=== PATIENT | female | born 1935 | race Caucasian/White ===

== ENCOUNTER 2018-05-16 13:44 | Inpatient (IN) ==
--- NOTE | 2018-05-16 14:32 | EKG Report ---
Test Performed on : 05/16/2018 1:48:18 PM Test Reason : CP Blood Pressure : / mmHG Vent. Rate : 101 BPM Atrial Rate : 278 BPM P-R Int : 000 ms QRS Dur : 086 ms QT Int : 380 ms P-R-T Axes : 000 -34 024 degrees QTc Int : 492 ms Atrial flutter. with variable AV block. Left axis deviation Nonspecific ST abnormality Abnormal ECG When compared with ECG of 12-MAY-2017 06:37, Atrial flutter. has replaced Sinus rhythm. Unconfirmed Result
[2018-05-16 15:34] LABS: BASO# 0.04 X1000 (0.0-0.2); BASO% 0.4 % (0.0-0.8); EOS# 0.03 X1000 (0.0-0.7); EOS% 0.3 % (0.0-10.0); HEMATOCRIT 43.2 % (37.0-47.0); HEMOGLOBIN 14.2 g/dL (12.0-16.0); IMM GRAN# 0.02 X1000 (0.0-0.04); IMM GRAN% 0.2 % (0.0-0.5); LYMPH# 1.95 X1000 (1.2-3.4); LYMPH% 21.4 % (20.5-51.1); MCH 30.6 PG (27-31); MCHC 32.9 g/dL (33-37); MCV 93.1 FL (81-99); MONO# 0.82 X1000 (0.11-0.59); MPV 10.7 FL (7.4-10.4); NEUT# 6.25 X1000 (1.4-6.5); NEUT% 68.7 % (42.2-75.2); PLT 268 X1000 (130-400); RBC 4.64 XMIL (4.2-5.4); RDW 13.1 % (11.5-14.5); WBC 9.11 X1000 (4.8-10.8)
[2018-05-16 15:37] LABS: INR 1.02; PROTIME 14.2 Seconds (11.0-16.0)
[2018-05-16 15:38] LABS: PTT 32.5 Seconds (22.3-41.8)
--- NOTE | 2018-05-16 15:46 | Diag Imaging Result Doc PS360 ---
CHEST-2 VIEWS - 05/16/2018 INDICATION: cp COMPARISON: 02/18/2018 FINDINGS: Stable sternotomy wires. Heart size and pulmonary vascularity is normal. No infiltrates or edema. IMPRESSION: No acute disease. Electronically signed by Andrew Bustos 05/16/2018 3:44 PM
[2018-05-16 15:51] LABS: ALB/GLOB RATIO 1.7; ALBUMIN 3.9 g/dL (3.5-5.0); CALCIUM 9.2 mg/dL (8.8-10.2); CREATININE 0.9 mg/dL (0.5-0.9); POTASSIUM 3.9 mmol/L (3.5-5.1); TOTAL BILIRUBIN 0.86 mg/dL (0.20-1.00); TOTAL PROTEIN 6.2 g/dL (6.3-8.3)
--- NOTE | 2018-05-16 16:25 | EKG Report ---
Test Performed on : 05/16/2018 4:14:28 PM Test Reason : CP Blood Pressure : / mmHG Vent. Rate : 100 BPM Atrial Rate : 271 BPM P-R Int : 000 ms QRS Dur : 088 ms QT Int : 350 ms P-R-T Axes : 000 -28 016 degrees QTc Int : 451 ms Atrial flutter. with variable AV block. Abnormal ECG When compared with ECG of 16-MAY-2018 13:48, (Unconfirmed) No significant change was found Unconfirmed Result
--- NOTE | 2018-05-16 16:57 | PROVIDER DOCUMENTATION ---
This chart was entered by Luann Barfield Scribe, acting as scribe for Val Fishman CRNP. HPI-Cardiac General - General Chief Complaint: Palpitations Stated Complaint: CP Time Seen by Provider: 05/16/18 14:25 Source: patient Allergies/Adverse Reactions: Patient Allergies Allergy/AdvReac Type Severity Reaction Status Date / Time morphine AdvReac HIVES Verified 05/16/18 14:59 Penicillins AdvReac NAUSEA Verified 05/16/18 14:59 Sulfa (Sulfonamide AdvReac NAUSEA Verified 05/16/18 14:59 Antibiotics) Home Medications: Home Medication List Medication Instructions Recorded Confirmed Last Taken Type Brimonidine Tartrate [Alphagan P] 1 drop OP DAILY 05/11/17 05/16/18 05/16/18 History Carbidopa/Levodopa [Carbidopa-Levo 1 tab PO HS PRN 05/11/17 05/16/18 Unknown History 10-100 Tab] Citalopram [Celexa] 20 mg PO DAILY 05/11/17 05/16/18 05/16/18 History Furosemide [Lasix] 20 mg PO DAILY 05/11/17 05/16/18 05/16/18 History Gabapentin 300 mg PO TID 05/11/17 05/16/18 05/16/18 History Levothyroxine [Synthroid] 100 mcg PO DAILY 05/11/17 05/16/18 05/16/18 History Aspirin 81 mg PO DAILY #90 chewtab 05/15/17 05/16/18 05/16/18 Rx Albuterol Sulfate Inhaler 1 puff INH PRN PRN 05/16/18 05/16/18 05/16/18 History [Ventolin Hfa] Albuterol Sulfate [Proair Hfa] 1 puff INH PRN PRN 05/16/18 05/16/18 Unknown History Amlodipine [Norvasc] 5 mg PO DAILY 05/16/18 05/16/18 05/16/18 History Clopidogrel Bisulfate [Clopidogrel] 75 mg PO DAILY 05/16/18 05/16/18 05/16/18 History - History of Present Illness-Cardiac Nature of Presenting Problem: 82 yof presents to the ed with c/o palpitations for 4 days intermittent. pt c/o near syncope and sob but declines chest pain. pt has no hx of afib Location: reports: other (left anterior) Quality of Pain: reports: other (palpitations) Severity in ED: moderate Onset/Duration: 4 days ago Timing: still present, intermittent Context/Activities at Onset: reports: light activity Modifying Factors: improves with: nothing Palpitation Quality: irregular History of arrythmia: reports: none Recent use of:: reports: no stimulants Nitro Today/Relief: reports: no nitro taken today Aspirin Treatment Today: reports: no aspirin today Prior Chest Pain/Cardiac Workup: reports: no prior chest pain Associated Symptoms: reports: shortness of breath. denies: abdominal pain, dizziness, fever/chills, nausea, syncope, vomiting Review of Systems - Adult - REVIEW OF SYSTEMS - ADULT Constitutional: denies: chills, fever Eyes: denies: blurred vision, double vision Ears, Nose, Mouth & Throat: reports: no symptoms reported Cardiovascular: reports: see HPI, palpitations. denies: chest pain, syncope ( near syncope) Respiratory: reports: shortness of breath. denies: cough, wheezing Gastrointestinal: denies: abdominal pain, diarrhea, nausea, vomiting Genitourinary: reports: no symptoms reported Musculoskeletal: reports: no symptoms reported Integumentary: reports: no symptoms reported Neurological: denies: dizziness/vertigo, headache/migraines Psychiatric: reports: no symptoms reported Endocrine: reports: no symptoms reported Hematologic/Lymphatic: reports: no symptoms reported Allergic/Immunologic: reports: no symptoms reported All Other Systems: Reviewed and Negative Past History - Adult - PAST MEDICAL HISTORY-ADULT Review of Records: reports: Old Records Reviewed, Nursing Assessment Review, Medications Reviewed, Social history reviewed & non-contributory. Major Childhood Illnesses: reports: denies history Cardiovascular: reports: CAD, HTN Respiratory: reports: COPD Gastrointestinal: reports: GERD Obstetrical/Gynecological: reports: denies history Genitourinary: reports: denies history Musculoskeletal: reports: denies history Neurological: reports: denies history Psychiatric: reports: denies history Endocrine/Immune: reports: denies history Other Conditions: reports: denies history - PRIOR SURGERIES/PROCEDURES Surgical/Procedure History: reports: CABG, cardiac stent - IMMUNIZATION STATUS Childhood Immunizations: See Nurse Assessment Flu Vaccine: See Nurse Assessment - FAMILY HISTORY Family History: reviewed, not pertinent - SOCIAL HISTORY Smoking: denies Substance Use: denies Alcohol Use Frequency: never Living Situation: family Physical Exam-General - PHYSICAL EXAM-ADULT Initial Vital Signs Reviewed: Yes - CONSTITUTIONAL General Appearance: appears well, alert, no apparent distress - EYES Eyes: PERRL/EOMI, pink conjunctivae - HEAD, EARS, NOSE, MOUTH & THROAT HENMT: moist mucous membranes, normal ENT inspection - NECK Neck: non-tender, full range of motion, supple, normal inspection - RESPIRATORY Respiratory: chest non-tender, lungs clear, normal breath sounds - CARDIOVASCULAR Cardiovascular: normal peripheral pulses, tachycardia (139), other (irregular) - GASTROINTESTINAL (ABDOMEN) Abdominal Exam: normal bowel sounds, non tender, soft - LYMPHATIC Lymphatic: no adenopathy - MUSCULOSKELETAL Back Exam: normal inspection, no CVA tenderness, no vertebral tenderness Extremity: normal range of motion, non-tender, normal gait, normal inspection - SKIN Integumentary: normal color, normal turgor, warm/dry - NEUROLOGIC Neurologic: grossly normal, no motor/sensory deficits - PSYCHIATRIC Psych/Mental Status: normal mood/affect, normal thought content, normal thought process, oriented x 3 - HEART Score HEART Score: History: Moderately Suspicious HEART Score: ECG: Normal HEART Score: Age: > or = 65 Years HEART Score: Risk Factors for Atherosclerotic Disease: 1 or 2 Risk Factors HEART Score: Troponin: < or = Normal Limit Total HEART Score:: 4 Progress - PLAN OF CARE/RESULTS Progress/Plan/Lab Results: Vital Signs - 8 hr 05/16/18 13:53 05/16/18 15:10 05/16/18 15:12 Temperature 97.7 F Pulse Rate 139 H 76 75 Respiratory Rate 18 Blood Pressure 146/98 141/85 O2 Sat by Pulse Oximetry 99 93 L 95 05/16/18 15:17 05/16/18 15:20 05/16/18 15:30 Temperature Pulse Rate 87 75 79 Respiratory Rate 13 15 Blood Pressure 147/85 O2 Sat by Pulse Oximetry 95 95 94 L 05/16/18 15:32 05/16/18 15:40 05/16/18 15:48 Temperature Pulse Rate 82 78 87 Respiratory Rate Blood Pressure 140/89 129/71 O2 Sat by Pulse Oximetry 94 L 94 L 94 L 05/16/18 15:50 05/16/18 16:00 05/16/18 16:02 Temperature Pulse Rate 92 H 91 H 97 H Respiratory Rate Blood Pressure 144/77 O2 Sat by Pulse Oximetry 92 L 94 L 91 L 05/16/18 16:10 Temperature Pulse Rate 96 H Respiratory Rate Blood Pressure O2 Sat by Pulse Oximetry 92 L Laboratory Results - last 24 hr 05/16/18 05/16/18 05/16/18 15:15 15:15 15:15 WBC 9.11 RBC 4.64 Hgb 14.2 Hct 43.2 MCV 93.1 MCH 30.6 MCHC 32.9 L RDW Std Deviation 13.1 Plt Count 268 MPV 10.7 H Immature Gran % (Auto) 0.2 Neut % (Auto) 68.7 Lymph % (Auto) 21.4 [place] % (Auto) 9.0 Eos % (Auto) 0.3 Baso % (Auto) 0.4 Immature Gran # (Auto) 0.02 Neut # (Auto) 6.25 Lymph # (Auto) 1.95 [place] # (Auto) 0.82 H Eos # (Auto) 0.03 Baso # (Auto) 0.04 PT 14.2 INR 1.02 PTT (Actin FS) 32.5 Sodium 142 Potassium 3.9 Chloride 103 Carbon Dioxide 27 Anion Gap 12 BUN 12 Creatinine 0.9 Estimated GFR/1.73 m2 60 BUN/Creatinine Ratio 13 Glucose 152 H Calculated Osmolality 286 Calcium 9.2 Total Bilirubin 0.86 AST 11 ALT 8 L Alkaline Phosphatase 81 Creatine Kinase 46 Troponin T [id number] Pept Total Protein 6.2 L Albumin 3.9 Globulin 2.3 Albumin/Globulin Ratio 1.7 05/16/18 05/16/18 15:15 15:15 WBC RBC Hgb Hct MCV MCH MCHC RDW Std Deviation Plt Count MPV Immature Gran % (Auto) Neut % (Auto) Lymph % (Auto) [place] % (Auto) Eos % (Auto) Baso % (Auto) Immature Gran # (Auto) Neut # (Auto) Lymph # (Auto) [place] # (Auto) Eos # (Auto) Baso # (Auto) PT INR PTT (Actin FS) Sodium Potassium Chloride Carbon Dioxide Anion Gap BUN Creatinine Estimated GFR/1.73 m2 BUN/Creatinine Ratio Glucose Calculated Osmolality Calcium Total Bilirubin AST ALT Alkaline Phosphatase Creatine Kinase Troponin T < 0.010 [id number]-Uvdyqeyllbf Pept 3562 H Total Protein Albumin Globulin Albumin/Globulin Ratio Orders Category Date Time Status Nursing [[facility]. NRSG Communication Order] DIRECTED Care 05/16/18 16:09 Active Repeat Vital Signs .Heart Rate Care 05/16/18 15:18 Active CHEST-2 VIEWS [RAD] Stat Exams 05/16/18 14:26 Completed BNP [PRO B-NATRIURETIC PEPTIDE] Stat Lab 05/16/18 15:15 Completed CBC WITH DIFF [HEME] Stat Lab 05/16/18 15:15 Completed CK PROFILE [SP CHEM] Stat Lab 05/16/18 15:15 Completed COMPREHENSIVE METABOLIC PANEL [CHEM] Stat Lab 05/16/18 15:15 Completed PROTIME WITH INR [COAG] Stat Lab 05/16/18 15:15 Completed PTT [COAG] Stat Lab 05/16/18 15:15 Completed TROPONIN T Stat Lab 05/16/18 15:15 Completed EKG [EKG] Stat Ther 05/16/18 14:26 Draft EKG [EKG] Stat Ther 05/16/18 16:10 Draft Result Diagrams: 05/16/18 15:15 05/16/18 15:15 - REASSESSMENT Reassessment #1 Time Reassessed: 15:53 Status: improving Reassessment Comment: pt is resting Reassessment #2 Time Reassessed: 16:40 (pt and family made aware of admission status. agree with plan) - EKG 1 Time of EKG reading by physician:: 13:38 EKG Read and Signed by:: Britton Aranda EKG Interpretation (*Must complete 3 of following elements*): Abnormal Rate: 101 Rhythm: atrial flutter with variable av block Runge: left (axis deviation) QRS: normal MO Interval: normal Comments: nonspecific st abnormality - XRAY 1 XRAY: Bilateral XRAY Study: Chest Impression: See EMR Report (CHEST-2 VIEWS - 05/16/2018 INDICATION: cp COMPARISON: 02/18/2018 FINDINGS: Stable sternotomy wires. Heart size and pulmonary vascularity is normal. No infiltrates or edema. IMPRESSION: No acute disease. Electronically signed by Andrew Bustos 05/16/2018 3:44 PM [id number] Interpreting Physician: Andrew Bustos MD Dictated Date/Time: 05/16/18 0325 cc: Val Fishman; Rima Parkinson MD) - CONSULTS/PCP/HOSPITALIST Notification #1 *Consult/PCP/Hospitalist*: dr julio salazar cardio Time Discussed: 16:42 Reason/Comments: wants pt admitted Departure - Departure Date of Disposition Decision: 05/16/18 Time of Disposition Decision: 16:56 DIAGNOSIS: Atrial flutter Qualifiers: Atrial flutter type: unspecified Qualified Code(s): I48.92 - Unspecified atrial flutter Disposition: ADMITTED INPATIENT 09 Certified Medical Emergency: Emergent Condition: Fair Referrals and Follow-Ups: Rima Parkinson MD [Primary Care Provider] - - Critical Care Note This patient required my direct & personal management of CC.: Yes Total Time (mins): 37 Critical Care Statement: This patient required my direct personal management to treat or rule out processes, the absence of which, could potentiallly result in sudden, clinically significant life or limb threatening deterioration. Attestation - Physician/ ALICIA Attestation Patient care was provided by Advanced Practice Provider:: Yes Advanced Practice Provider:: Val Fishman Advanced Practice Provider documentation review:: The Mid-level provider documentation, treatment plan and medical decision making was reviewed by the physician who agrees with all treatment and medical decision making by the MLP. The physician spent face to face time with patient:: No Advanced Practice Provider documentation review:: Supervising physician onsite and consulted in the evaluation and care of this patient. The physician did not have a face to face encounter with the patient. This chart was documented by the indicated scribe, (Luann Barfield Scribe) and accurately reflects the services I performed and decisions made by me, Vla Fishman CRNP, as attested by the provider's signature.
--- NOTE | 2018-05-16 18:30 | HISTORY AND PHYSICAL ---
HISTORY: Ms. Langley is an 82-year-old female with history of coronary artery disease. She has had CABG in the past. She had stenting done I think back in the end of March of 2017. She has been on dual anti-platelet therapy. She reports that she noticed palpitations really that have been going on for 5 or 6 days now, and seems to be more intense. She just feels drained, does not have any chest pain, felt a little bit of dyspnea with any exertion, but mainly just poor energy, and it just seemed to drain her. Denied fever or chills. No pleuritic pain. No nausea. No diaphoresis. PAST MEDICAL HISTORY: 1. Coronary artery disease status post CABG and recent stenting this last year. 2. COPD. 3. Hypertension. 4. Hypothyroidism. 5. Anxiety and depression. PAST SURGICAL HISTORY: Coronary stenting and CABG bypass surgery. SOCIAL HISTORY: She quit smoking 30 years ago. Lives with her son. She is . No tobacco, alcohol or tobacco. FAMILY HISTORY: Noncontributory. ALLERGIES: Morphine, penicillin, and sulfa. REVIEW OF SYSTEMS: In general, no weight gain or loss. No fever or chills.HEENT: Unremarkable. Respiratory: No increased work of breathing or dyspnea. Cardiovascular: No chest pain or tachy palpitation until 5 or 6 days ago when she started having these palpitations in her chest, and feeling shortness of breath. Gastrointestinal and Genitourinary: No complaints of changes in bowel or urinary habits. Endocrinologic/Hematologic: No significant history. PHYSICAL EXAMINATION: VITAL SIGNS: Temperature 97.7 degrees, pulse 96, respirations 15, and blood pressure 144/77. Weight 185 pounds. HEENT: Pupils are equal and round. LUNGS: Clear anterior and posterior in all lung caldwell. CARDIOVASCULAR: Regular rhythm and rate, but on EKG you can tell there is atrial flutter with variable conduction rate. PMI nondisplaced. Carotid radial femoral pulses 2+ and symmetrical ABDOMEN: Soft. Nontender and nondistended. SKIN: Warm and dry. NECK: No distended neck veins. CVP less than 6 cm. LABORATORY: Sodium 142, potassium 3.9, chloride 103, BUN 12, and creatinine 0.9. AST 11, ALT is 8. Albumin 3.9. ProTime is 14.2. PTT is 32. Chest x-ray no acute disease. Stable sternotomy wires, no infiltrate. ASSESSMENT AND PLAN: 1. Atrial flutter. She has underlying coronary artery disease, but I do not suspect any underlying ischemia. We will check serial cardiac enzymes. We will check her T4 and TSH, and I think Dr. Middleton is planning on electrocardioversion tomorrow. Depending on how she does, we will try move her to [facility]. 2. History of coronary artery disease. 3. History of COPD. No trouble with breathing or bronchospasm. 4. Hypertension. Blood pressure appears well controlled. 5. History of hypothyroidism. We will check T4 and TSH. Continue her Synthroid. 6. History of anxiety and depression aware. 7. When looking at labs, no anemia. Electrolytes are unremarkable. Troponin initially 0.01, and CK was 46. cc: Helder Browne MD
--- NOTE | 2018-05-16 18:55 | CARDIOLOGY CONSULTATION ---
DATE: 05/16/2018 CHIEF COMPLAINT ON PRESENTATION: Fatigue, heart racing. HISTORY OF PRESENT ILLNESS: Ms. Langley is an 82-year-old white female, well known to me. I normally follow her in my clinic. Last visit December 2017. For the last two weeks she has been very fatigued with intermittent heart racing spells. She denies any overt chest pain or orthopnea. She has been compliant with all of her medications. She has not had any sort of upper respiratory or other infectious-type symptomatology. No chest pain. PAST MEDICAL HISTORY: 1. Significant for coronary disease with coronary bypass grafting. She had a bypass in 2001 with a LADD to the LAD and a vein graft to the right coronary artery. She did have a cardiac catheterization in April 2017 showing a 50% proximal LAD, 100% mid vessel, with a 40% small 1st diagonal lesion. Circumflex had 20% proximal, 20% distal and a 90% posterolateral in a small vessel. The right coronary had a 70% mid FFR of the right coronary, was 0.79. This was treated with a drug-eluting stent. The LADD to the LAD was patent. The vein graft to the RCA was known to be occluded. 2. COPD. 3. Hypertension. 4. Hyperlipidemia. 5. Diabetes. 6. Hypothyroidism. 7. Reflux disease. 8. Diverticulitis. 9. Chronic fatigue. 10. Depression. SOCIAL HISTORY: She does not smoke. She is . Family is present at bedside in the form of her daughter and son. FAMILY HISTORY: Significant for hypertension. REVIEW OF SYSTEMS: A 10-system review of systems is negative except for those things mentioned in HPI. PHYSICAL EXAMINATION: Vital Signs: She is afebrile. Her heart rate presently is in the 90s. On presentation it was 139. Blood pressure is 144/77. General: She is in no acute distress. HEENT: Oropharynx is moist. Normal dentition. Eye examination is pink conjunctivae. White sclerae. Neck: Examination shows no obvious thyromegaly or thyroid tenderness. Cardiovascular: She sounds to be in an irregularly irregular rhythm. This is consistent with rate controlled atrial flutter that seems present on her monitor. She has no lower extremity edema. Her JVP does not appear to be elevated. Chest: Her chest exam sounds clear bilaterally. She has no increased work of breathing. Abdomen: Soft, nontender, nondistended. She has no obvious organomegaly. Skin: Warm and dry throughout without any rashes. Neurologic: She is moving all extremities well. She has no lateralizing deficits. Psychiatric: She is alert, oriented and pleasant. She has normal mood and affect. PERTINENT DATA: Her EKG at 13:48 today shows atrial flutter, rate of 101 beats per minute. Variable conduction. No obvious ischemic changes. Subsequent EKG at 16:14 today shows atrial flutter, rate of 100 beats per minute. Variable conduction. No obvious ischemic changes. Those were reviewed by me. Chest x-ray shows stable sternotomy wires. Heart size and pulmonary vascularity appeared normal. Her lab data shows a white count of 9.1, hematocrit of 43, platelet count 268,000. Her INR is 1. Her sodium is 142, potassium 3.9, BUN 12, creatinine 0.9. Cardiac enzymes are negative. Her proBNP is 3562. ASSESSMENT: Ms. Langley is an 82-year-old female with a history of coronary disease who presented with new onset atrial fibrillation. PLAN: She will be admitted to the hospital. I have stopped her Plavix. She is outside of the 1 year time period of her post PCI. We will initiate apixaban at a dose of 5 mg p.o. b.i.d. This is the correct dose based on her age, weight and renal function. Risks, benefits and alternatives to anticoagulation have been discussed with her. We will set her up for a tentative MARINA and cardioversion in the morning if she remains in atrial fibrillation. I have made her n.p.o. We will check morning laboratories. I will discontinue her home dose of Norvasc and we will start her on diltiazem at a dose of 30 mg p.o. q.6 hours, and may consider escalating this dose in the future. We have avoided beta-blockers in her in the past secondary to her significant degrees of fatigue. cc: César Middleton MD
[2018-05-16 19:36] LABS: URINE SOURCE CLEAN CATCH
[2018-05-16 19:43] LABS: BILIRUBIN URINE NEGATIVE (NEGATIVE); BLOOD URINE SMALL (NEGATIVE); COLOR YELLOW; GLUCOSE URINE NEGATIVE (NEGATIVE); KETONE URINE NEGATIVE (NEGATIVE); LEUKOCYTES URINE TRACE (NEGATIVE); NITRITE URINE NEGATIVE (NEGATIVE); PROTEIN URINE TRACE mg/dL (NEGATIVE); SP GRAVITY URINE 1.017; TURBIDITY URINE CLEAR (CLEAR); UR EPITHELIAL CELLS <10 /HPF (<10); URINE BACTERIA NEGATIVE /HPF; URINE RBC <10 /HPF (<10); URINE WBC <10 /HPF (<10); UROBILINOGEN URINE NORMAL (NORMAL)
[2018-05-16] MEDS: CARDIZEM PO SCH (20:00)
[2018-05-16] MEDS ORDERED: ZOFRAN IV PRN (20:09)
[2018-05-16] MEDS ORDERED: TYLENOL PO PRN (20:09)
[2018-05-16] MEDS ORDERED: SINEMET 10/100 PO PRN (20:09)
[2018-05-16] MEDS ORDERED: VENTOLIN HFA INH PRN ×2 (20:09)
[2018-05-16] MEDS ORDERED: NS 1,000 ML IV SCH (20:09)
[2018-05-16] MEDS: NEURONTIN PO SCH (21:00)
[2018-05-16] MEDS: ELIQUIS PO SCH (21:00)
[2018-05-17] MEDS: CARDIZEM PO SCH ×4 (01:12→17:33)
[2018-05-17 05:45] LABS: BASO# 0.05 X1000 (0.0-0.2); BASO% 0.6 % (0.0-0.8); EOS# 0.14 X1000 (0.0-0.7); EOS% 1.8 % (0.0-10.0); HEMATOCRIT 41.3 % (37.0-47.0); HEMOGLOBIN 13.2 g/dL (12.0-16.0); IMM GRAN# 0.02 X1000 (0.0-0.04); IMM GRAN% 0.3 % (0.0-0.5); LYMPH# 2.78 X1000 (1.2-3.4); LYMPH% 35.8 % (20.5-51.1); MCH 30.3 PG (27-31); MCV 94.7 FL (81-99); MONO# 0.72 X1000 (0.11-0.59); MONO% 9.3 % (1.7-9.3); MPV 10.7 FL (7.4-10.4); NEUT# 4.06 X1000 (1.4-6.5); NEUT% 52.2 % (42.2-75.2); PLT 231 X1000 (130-400); RBC 4.36 XMIL (4.2-5.4); WBC 7.77 X1000 (4.8-10.8)
[2018-05-17 05:59] LABS: CHOLESTEROL 193 mg/dL (0-200); HDL 40 mg/dL (45-65); LDL 128 mg/dL; TRIGLYCERIDES 123 mg/dL (35-135); VLDL 25 mg/dL
[2018-05-17 06:09] LABS: ALB/GLOB RATIO 1.5; ALBUMIN 3.5 g/dL (3.5-5.0); CALCIUM 8.9 mg/dL (8.8-10.2); POTASSIUM 3.8 mmol/L (3.5-5.1); TOTAL BILIRUBIN 0.92 mg/dL (0.20-1.00); TOTAL PROTEIN 5.8 g/dL (6.3-8.3)
[2018-05-17] MEDS ORDERED: SYNTHROID PO SCH (07:00)
--- NOTE | 2018-05-17 07:24 | EKG Report ---
Test Performed on : 05/17/2018 06:27:31 AM Test Reason : afib Blood Pressure : / mmHG Vent. Rate : 071 BPM Atrial Rate : 271 BPM P-R Int : 000 ms QRS Dur : 090 ms QT Int : 424 ms P-R-T Axes : -08 -37 -53 degrees QTc Int : 460 ms Atrial flutter. with variable AV block. Left axis deviation ST & T wave abnormality, consider inferior ischemia Abnormal ECG When compared with ECG of 16-MAY-2018 16:14, (Unconfirmed) ST now depressed in Inferior leads T wave inversion now evident in Inferior leads Nonspecific T wave abnormality now evident in Lateral leads Unconfirmed Result
--- NOTE | 2018-05-17 07:57 | PROGRESS NOTE ---
DATE: 05/17/2018 SUBJECTIVE: Ms. Langley was sleeping, resting comfortably. Did not arouse with exam, breathing comfortably. OBJECTIVE: Vital Signs: Her temperature is 98.0 degrees, pulse 70, respirations 18, blood pressure 153/81. O2 saturations 94%. Weight 181 pounds. She was 185 when she presented yesterday. Eyes: Pupils are equal and round. Lungs: Lungs are clear in all lung caldwell. Cardiovascular exam: Regular rhythm and rate without murmur or S3. She is still in atrial flutter with variable conduction. Abdomen: Soft. Extremities: No pedal edema. LABS: Her lab work this morning: White count 7770, hematocrit is 41, platelet count is 231,000. Sodium 142, potassium 3.8, chloride 106. BUN 13, creatinine 1.0, albumin is 2.3. Pro time is 14.2, PTT is 32. Urinalysis unremarkable from yesterday. X-RAY: Chest x-ray from yesterday: No acute disease, no infiltrate. Stable sternotomy wires. Heart size and pulmonary vasculature normal. ASSESSMENT AND PLAN: 1. History of coronary artery disease. She had bypass in 2001 with left internal mammary artery to the left anterior descending, vein graft to the right coronary artery. She had a heart catheterization April 2017 that showed a 50% proximal left anterior descending, 100% midvessel, 40% small first diagonal lesion. Circumflex had 20% proximal, 20% distal, 90% posterolateral and a small vessel. Right coronary 70% and this was treated with a drug- eluting stent as left internal mammary artery to the left anterior descending was patent, vein graft to right coronary artery was known to be occluded. Her enzymes: Troponin is less than 0.01. 2. Atrial flutter appears to be new onset. I think the plan is for esophageal echocardiogram and cardioversion. 3. History of chronic obstructive pulmonary disease. No trouble with air or gas exchange. Breathing comfortably. 4. Hypertension. Blood pressure appeared to be well controlled. Review of her orders: I do not see any change. She does have a history of hypothyroidism. She is on Synthroid 100 mcg daily. She is getting aspirin 81 mg a day. She is on Eliquis 5 mg b.i.d., Norvasc 5 mg a day, Cardizem 30 mg p.o. q. 6 hours, Lasix 20 mg daily, Plavix 75 mg a day, and Celexa 20 mg a day. She is also on carbidopa/levodopa, which I think she takes p.r.n. cc: Helder Browne MD
[2018-05-17] MEDS: ELIQUIS PO SCH (08:48)
[2018-05-17] MEDS: NEURONTIN PO SCH ×2 (08:48→15:07)
[2018-05-17] MEDS ORDERED: ALPHAGAN P 0.15% OPHTH SOLN BOTH EYES SCH (09:00)
[2018-05-17] MEDS ORDERED: CELEXA PO SCH (09:00)
[2018-05-17] MEDS ORDERED: PLAVIX PO SCH (09:00)
[2018-05-17] MEDS ORDERED: LASIX PO SCH (09:00)
[2018-05-17] MEDS ORDERED: NORVASC PO SCH (09:00)
[2018-05-17] MEDS ORDERED: ASPIRIN PO SCH (09:00)
[2018-05-17] MEDS ORDERED: DIPRIVAN 1% ONE (10:24)
[2018-05-17] MEDS ORDERED: VERSED ONE (10:25)
--- NOTE | 2018-05-17 10:50 | OPERATIVE NOTE ---
PROCEDURE DATE: PROCEDURE: Cardioversion following transesophageal echocardiogram. Please see detailed anesthesia records. DESCRIPTION OF PROCEDURE: The patient underwent a transesophageal echocardiogram, and there was no obvious intracardiac mass or clot noted. Given this, we proceeded with cardioversion. The patient was cardioverted to sinus rhythm with synchronized 50 joules biphasic single shock. Patient is in sinus rhythm. There were no complications. Please see detailed anesthesia records. cc: Ady Bullock MD
--- NOTE | 2018-05-17 10:51 | ECHO REPORT ---
ORDER DATE: 05/17/2018 TRANSESOPHAGEAL ECHOCARDIOGRAM: The patient was brought to the cardiac catheterization laboratory for MARINA, cardioversion for atrial flutter. Informed consent was obtained from the patient. Intravenous access was already established. The patient's oropharynx was anesthetized using Cetacaine spray. A transesophageal probe was easily passed into the esophagus. Versed was given. Please see detailed anesthesia records. There were no complications. FINDINGS: 1. Normal left ventricular cavity size. Estimated ejection fraction of 60%. 2. Aortic valve leaflets are sclerosed, trileaflet. Mitral valve was normal. There is mitral annular calcification. 3. Tricuspid valve was normal. Pulmonic valve was normal. 4. Left atrium was enlarged. Left atrial appendage was normal. There was no clot noted. Right atrium was mildly enlarged. 5. Doppler studies reveal mild mitral regurgitation. There is mild to moderate tricuspid regurgitation. There is no aortic stenosis. There is mild eccentric aortic regurgitation. There is no pulmonary regurgitation. 6. Ascending aorta was normal. Descending aorta had layered plaque. CONCLUSIONS: Normal left ventricular cavity size, estimated ejection fraction of 60%. There is no obvious intracardiac mass or thrombus seen. Would proceed with cardioversion. cc: MD César Telles MD
--- NOTE | 2018-05-17 12:09 | EKG Report ---
Test Performed on : 05/17/2018 11:05:01 AM Test Reason : post cardioversion Blood Pressure : / mmHG Vent. Rate : 067 BPM Atrial Rate : 067 BPM P-R Int : 224 ms QRS Dur : 092 ms QT Int : 464 ms P-R-T Axes : 079 -24 -07 degrees QTc Int : 490 ms Sinus rhythm. with 1st degree AV block. Prolonged QT Abnormal ECG When compared with ECG of 17-MAY-2018 06:27, (Unconfirmed) Sinus rhythm. has replaced Atrial flutter. T wave inversion no longer evident in Inferior leads Nonspecific T wave abnormality no longer evident in Lateral leads Unconfirmed Result
--- NOTE | 2018-05-17 14:56 | DISCHARGE SUMMARY ---
ADMISSION DATE: 05/16/2018 DISCHARGE DATE: 05/17/2018 HISTORY: This is an 82-year-old female followed by Dr. Rima Parkinson with history of coronary artery disease. She had CABG in the past. She had some stenting done back in March of 2017. She has been on dual antiplatelet therapy. She reports she has noticed palpitations really and had gone for 5 or 6 days and seems to be more intense. She just feels drained. Denies any chest pain. She presented and she was in atrial flutter. PAST MEDICAL HISTORY: 1. Coronary artery disease status post CABG, recent stenting in the last year. 2. COPD. 3. Hypertension. 4. Hypothyroidism. 5. Anxiety and depression. ADMISSION DIAGNOSES: Atrial flutter with variable conduction, was symptomatic just felt very tired and fatigued. Underlying history of coronary artery disease, but do not see any active ischemia. Enzymes were unremarkable. Cardiology evaluated. Troponin was less than 0.01. EKG consistent with atrial flutter. Dr. Bullock did cardioversion with transesophageal echocardiogram, and she remained in sinus rhythm and felt well. They use synchronized 50 joules biphasic single shock. We will plan to discharge her home. DISCHARGE MEDICATIONS: 1. Norvasc 5 mg a day. 2. Eliquis 5 mg b.i.d. 3. Aspirin 81 mg a day. 4. She will take her eyedrops 0.15% both eyes every day. 5. She takes carbidopa levodopa 10/100 1 at bedtime p.r.n. 6. Celexa 20 mg a day. 7. Cardizem 30 mg 4 times a day. 8. Lasix 20 mg a day. 9. Neurontin 300 mg t.i.d. 10. Synthroid 100 mg daily. FOLLOW UP: She will follow up with Cardiology in a couple of weeks. cc: Helder Browne MD MTDD
[2018-05-17 16:32] VITALS: BP 143/82
--- NOTE | 2018-05-17 19:50 | CARDIOLOGY PROGRESS NOTE ---
DATE: 05/17/2018 SUBJECTIVE: Ms. Langley underwent her MARINA cardioversion today without any difficulties. She is in sinus rhythm presently. PHYSICAL: She is afebrile. Heart rate is 65, her blood pressure is 136/72. General: She is in no acute distress. Cardiovascular: She sounds to be in a regular rate and rhythm. She has no obvious murmurs. She has no S3. No lower extremity edema. Chest: Clear to auscultation bilaterally. No increased work of breathing. Abdomen: Soft, nontender. PERTINENT DATA: Her ejection fraction on echocardiogram was 60%. Cardioversion was successful. Her lab data shows a white count of 7, hematocrit of 41, platelet count 231,000. Her TSH was 4.62. Albumin 3.5, BUN and creatinine were 13 and 1 respectively. ASSESSMENT: Ms. Langley is an 82-year-old female with new onset atrial fibrillation. PLAN: She had a cardioversion today. We will continue her on the apixaban 5 mg b.i.d. which is dosed for her age, weight and kidney function. We have stopped Plavix. She has been initiated on diltiazem at 30 q.6 which could be changed over on discharge to 120 mg daily. From my standpoint, she can be discharged home when okay with the primary team. I will relay that information to them. cc: César Middleton MD
== END 2018-05-17 17:45 | disposition home or self-care (01) | DRG 310 ==
LOC: ED 13:44 → EDIPHOLD 21:37 → 3S 05-17 00:09
PROVIDERS: ATTEND Emergency Medicine
CPT/HCPCS: 71020; 71046; 80053; 80061; 81001; 82550; 83735; 83880; 84443; 84484; 85025; 85610; 85730; 87088; 92960; 93005; 93312; 94761; 99285; A9270; J2250; J7030

== ENCOUNTER 2019-01-06 07:34 | Inpatient (IN) ==
[2019-01-06] MEDS ORDERED: SINEMET 10/100 PO PRN (10:03)
[2019-01-06] MEDS ORDERED: ANTIVERT PO PRN (10:03)
[2019-01-06] MEDS ORDERED: ASPIRIN PO SCH (10:15)
[2019-01-06] MEDS: CELEXA PO SCH (10:34)
[2019-01-06] MEDS: ASPIRIN PO SCH (10:34)
[2019-01-06] MEDS: NORVASC PO SCH (10:34)
[2019-01-06] MEDS: LASIX IV SCH (10:34)
[2019-01-06] MEDS: ELIQUIS PO SCH ×2 (10:34→20:03)
[2019-01-06] MEDS: KLOR-CON PO SCH (10:34)
[2019-01-06] MEDS: BETAPACE PO SCH ×2 (10:34→20:03)
[2019-01-06] MEDS: SYNTHROID PO SCH (10:34)
[2019-01-06] MEDS: OMNICEF PO SCH (10:35)
--- NOTE | 2019-01-06 10:56 | EKG Report ---
Test Performed on : 01/06/2019 10:17:24 AM Test Reason : afib Blood Pressure : / mmHG Vent. Rate : 100 BPM Atrial Rate : 300 BPM P-R Int : 000 ms QRS Dur : 092 ms QT Int : 382 ms P-R-T Axes : 000 -24 -01 degrees QTc Int : 492 ms Atrial fibrillation. Nonspecific ST and T wave abnormality Prolonged QT Abnormal ECG When compared with ECG of 27-DEC-2018 13:37, (Unconfirmed) QT has lengthened Confirmed by Edgar VERMA, Fantasma Kaufman ([id number]) on 01/07/2019 7:16:10 AM
[2019-01-06] MEDS: ALPHAGAN P 0.15% OPHTH SOLN BOTH EYES SCH (11:13)
[2019-01-06] MEDS: VENTOLIN HFA INH PRN ×4 (11:25→23:39)
[2019-01-06 11:27] LABS: HEMATOCRIT 41.5 % (37.0-47.0); HEMOGLOBIN 13.3 g/dL (12.0-16.0); MCH 30.3 PG (27-31); MCV 94.5 FL (81-99); MPV 10.2 FL (7.4-10.4); RBC 4.39 XMIL (4.2-5.4); RDW 12.5 % (11.5-14.5); WBC 8.13 X1000 (4.8-10.8)
[2019-01-06 11:49] LABS: CALCIUM 9.4 mg/dL (8.8-10.2); CREATININE 1.3 mg/dL (0.5-0.9); POTASSIUM 3.9 mmol/L (3.5-5.1)
[2019-01-06] MEDS: NEURONTIN PO SCH ×2 (13:19→17:38)
--- NOTE | 2019-01-06 17:35 | Diag Imaging Result Doc PS360 ---
EXAM: CHEST-2 VIEWS 01/06/2019 HISTORY: cough TECHNIQUE: two views of the chest COMMENT: PA and lateral chest the appearance of the chest has not changed significantly since 12/27/2018. There is osteopenia and accentuated dorsal kyphosis. IMPRESSION: Osteoporosis. Stable chest. Electronically signed by Desmond Reina 01/06/2019 5:33 PM
--- NOTE | 2019-01-07 00:17 | EKG Report ---
Test Performed on : 01/06/2019 10:52:06 PM Test Reason : afib Blood Pressure : / mmHG Vent. Rate : 083 BPM Atrial Rate : 220 BPM P-R Int : 000 ms QRS Dur : 094 ms QT Int : 458 ms P-R-T Axes : 000 -11 030 degrees QTc Int : 538 ms Atrial flutter. with variable AV block. Septal infarct , age undetermined Prolonged QT Abnormal ECG When compared with ECG of 06-JAN-2019 10:17, (Unconfirmed) Atrial flutter. has replaced Atrial fibrillation. Septal infarct is now present Confirmed by Edgar VERMA, Fantasma Kaufman ([id number]) on 01/07/2019 7:19:52 AM
[2019-01-07] MEDS: PRILOSEC PO SCH ×2 (05:19→06:00)
[2019-01-07] MEDS: VENTOLIN HFA INH PRN ×2 (05:21→19:39)
[2019-01-07 06:02] LABS: CALCIUM 9.3 mg/dL (8.8-10.2); CREATININE 1.4 mg/dL (0.5-0.9); MAGNESIUM 2.3 mg/dL (1.5-2.7)
[2019-01-07] MEDS: KLOR-CON PO SCH (08:33)
[2019-01-07] MEDS: CELEXA PO SCH (08:33)
[2019-01-07] MEDS: BETAPACE PO SCH ×2 (08:33→21:16)
[2019-01-07] MEDS: NEURONTIN PO SCH ×3 (08:33→21:27)
[2019-01-07] MEDS: ELIQUIS PO SCH ×2 (08:33→21:15)
[2019-01-07] MEDS: SYNTHROID PO SCH (08:33)
[2019-01-07] MEDS: ASPIRIN PO SCH (08:33)
[2019-01-07] MEDS: OMNICEF PO SCH (08:33)
[2019-01-07] MEDS: NORVASC PO SCH (08:33)
--- NOTE | 2019-01-07 09:04 | EKG Report ---
Test Performed on : 01/07/2019 08:47:35 AM Test Reason : afib Blood Pressure : / mmHG Vent. Rate : 082 BPM Atrial Rate : 114 BPM P-R Int : 000 ms QRS Dur : 092 ms QT Int : 404 ms P-R-T Axes : 000 -17 027 degrees QTc Int : 472 ms Atrial fibrillation. Abnormal ECG When compared with ECG of 06-JAN-2019 22:52, Atrial fibrillation. has replaced Atrial flutter. Criteria for Septal infarct are no longer present QT has shortened Confirmed by Edgar VERMA, Fantasma Kaufman ([id number]) on 01/07/2019 1:26:14 PM
[2019-01-07] MEDS ORDERED: SODIUM CHLORIDE 0.9% 20 ML ONE (09:34)
[2019-01-07] MEDS ORDERED: XYLOCAINE-MPF 2% ONE (09:34)
[2019-01-07] MEDS ORDERED: NEO-SYNEPHRINE ONE (09:34)
[2019-01-07] MEDS ORDERED: DIPRIVAN 1% ONE (09:35)
[2019-01-07] MEDS ORDERED: NS 1,000 ML ONE (09:44)
--- NOTE | 2019-01-07 10:51 | EKG Report ---
Test Performed on : 01/07/2019 10:45:36 AM Test Reason : post cardioversion Blood Pressure : / mmHG Vent. Rate : 068 BPM Atrial Rate : 068 BPM P-R Int : 246 ms QRS Dur : 092 ms QT Int : 470 ms P-R-T Axes : 074 -17 010 degrees QTc Int : 499 ms Sinus rhythm. with 1st degree AV block. Prolonged QT Abnormal ECG When compared with ECG of 07-JAN-2019 08:47, (Unconfirmed) Sinus rhythm. has replaced Atrial fibrillation. Confirmed by Edgar VERMA, Fantasma Kaufman ([id number]) on 01/07/2019 1:27:26 PM
--- NOTE | 2019-01-07 11:00 | CARDIAC CATH REPORT ---
PROCEDURE NAME: - INDICATION: Atrial fibrillation. PROCEDURE PERFORMED: Direct current cardioversion. PROCEDURE IN DETAIL: Ms. Langley was brought to the catheterization laboratory in a fasting state. Informed consent was obtained. She was prepped in the usual fashion. Via anesthesia, after appropriate sedation, she was cardioverted with 1 shock at 120 joules in a synchronized fashion. She had appropriate conversion to sinus rhythm. cc: César Middleton MD
--- NOTE | 2019-01-07 12:19 | CARDIOLOGY PROGRESS NOTE ---
DATE: 01/07/2019 SUBJECTIVE: Ms. Langley is doing well. She has no pain complaints. PHYSICAL EXAMINATION: She is afebrile. Her heart rate was 85, blood pressure was 129/85. General: She is in no acute distress. Cardiovascular: She sounds to be in a regular rate and rhythm. She has no obvious murmurs. She has no S3. PERTINENT DATA: Sodium of 138, potassium is 4, BUN 17, creatinine is 1.4. ProBNP is 1540. ASSESSMENT: Ms. Langley is an 83-year-old female with atrial fibrillation. PLAN: She is continuing on her sotalol load. Her EKG today shows a QTc of 499. We will continue to follow for the time-being. I will actually reduce her sotalol to 40 mg b.i.d. We will continue from there. Hopefully, she can be discharged in the morning. cc: César Middleton MD
[2019-01-07] MEDS: LASIX IV SCH (13:41)
[2019-01-07] MEDS: ALPHAGAN P 0.15% OPHTH SOLN BOTH EYES SCH (13:41)
[2019-01-07] MEDS ORDERED: LASIX IV ONE (20:50)
[2019-01-07] MEDS ORDERED: DUONEB (A & A) INH ONE (20:51)
--- NOTE | 2019-01-07 21:56 | EKG Report ---
Test Performed on : 01/07/2019 9:19:42 PM Test Reason : afib Blood Pressure : / mmHG Vent. Rate : 075 BPM Atrial Rate : 075 BPM P-R Int : 232 ms QRS Dur : 094 ms QT Int : 440 ms P-R-T Axes : 087 -09 023 degrees QTc Int : 491 ms Sinus rhythm. with 1st degree AV block. Prolonged QT Abnormal ECG When compared with ECG of 07-JAN-2019 10:45, No significant change was found Confirmed by Fantasma Hernández MD ([id number]) on 01/09/2019 5:33:04 PM
[2019-01-08] MEDS: PRILOSEC PO SCH (06:38)
[2019-01-08] MEDS: NEURONTIN PO SCH ×3 (08:37→17:36)
[2019-01-08] MEDS: OMNICEF PO SCH (08:37)
[2019-01-08] MEDS: ELIQUIS PO SCH ×2 (08:37→22:04)
[2019-01-08] MEDS: LASIX IV SCH (08:37)
[2019-01-08] MEDS: NORVASC PO SCH (08:37)
[2019-01-08] MEDS: ALPHAGAN P 0.15% OPHTH SOLN BOTH EYES SCH (08:38)
[2019-01-08] MEDS: ASPIRIN PO SCH (08:38)
[2019-01-08] MEDS: BETAPACE PO SCH ×2 (08:38→22:04)
[2019-01-08] MEDS: KLOR-CON PO SCH (08:38)
[2019-01-08] MEDS: CELEXA PO SCH (08:38)
[2019-01-08] MEDS: SYNTHROID PO SCH (08:38)
[2019-01-08] MEDS: VENTOLIN HFA INH PRN (11:05)
--- NOTE | 2019-01-08 12:19 | EKG Report ---
Test Performed on : 01/08/2019 12:14:46 PM Test Reason : afib Blood Pressure : / mmHG Vent. Rate : 060 BPM Atrial Rate : 060 BPM P-R Int : 230 ms QRS Dur : 094 ms QT Int : 500 ms P-R-T Axes : 090 -19 011 degrees QTc Int : 500 ms Sinus rhythm. with 1st degree AV block. Prolonged QT Abnormal ECG When compared with ECG of 07-JAN-2019 21:19, (Unconfirmed) No significant change was found Confirmed by Edgar VERMA, Fantasma Kaufman ([id number]) on 01/09/2019 8:59:47 AM
[2019-01-08] MEDS ORDERED: LASIX IV ONE (12:47)
--- NOTE | 2019-01-08 13:15 | Diag Imaging Result Doc PS360 ---
EXAM: CHEST-2 VIEWS INDICATION: hypoxia TECHNIQUE: 2 views COMPARISON: 01/06/2019 FINDINGS: The lungs are grossly clear. There is no discrete pleural fluid collection or pneumothorax. There are stable CABG changes. The cardiomediastinal silhouette and central vasculature are unremarkable, otherwise. IMPRESSION: No evidence of acute pathology by plain radiograph. Electronically signed by Je Fernandez 01/08/2019 1:13 PM
[2019-01-08] MEDS ORDERED: SOLU-MEDROL IV ONE (17:49)
[2019-01-08] MEDS ORDERED: DUONEB (A & A) INH PRN (17:50)
[2019-01-08] MEDS: PREDNISONE PO SCH (18:21)
[2019-01-08] MEDS: DUONEB (A & A) INH SCH (20:07)
[2019-01-08] MEDS: DOXYCYCLINE PO SCH (22:04)
--- NOTE | 2019-01-08 22:20 | CONSULTATION ---
DATE OF CONSULTATION: 01/08/2019 REASON FOR CONSULTATION: Shortness of breath and cough. HISTORY OF PRESENT ILLNESS: Ms. Langley is an 83-year-old white female with COPD, obesity, hiatal hernia and coronary artery disease, who is routinely followed in my clinic. The patient was admitted to the hospital for elective cardioversion. The patient was initiated on sotalol and subsequently cardioverted yesterday. Last evening, she had increased shortness of breath and wheezing. Pulmonary consultation was requested. PAST MEDICAL HISTORY: 1. COPD. 2. Coronary artery disease with prior bypass grafting and stent placement. 3. Hypertension. 4. Diabetes mellitus. 5. Dyslipidemia. 6. Hypothyroidism. 7. Gastroesophageal reflux disease. 8. Dyslipidemia. 9. Prior DVT in the right lower extremity. 10. Neuropathy. SOCIAL HISTORY: Prior tobacco use, but none for several years. FAMILY HISTORY: Noncontributory to current presentation. REVIEW OF SYSTEMS: Negative except for cough, wheezing and increased shortness of breath. PHYSICAL EXAMINATION: Physical exam reveals a well-developed, well-nourished white female resting comfortably and in no distress. BP 125/63, heart rate 56, respiratory rate 18, oxygen saturation 97% on nasal cannula.HEENT: Pupils are equal and reactive. Oropharynx is clear. Neck is supple. Chest reveals wheezing bilaterally. Cardiac exam: S1, S2. Abdomen is soft. Extremities are without edema. DIAGNOSTIC DATA: Chest x-ray reveals mild hyperinflation, prior coronary artery bypass grafting changes, without acute infiltrates. IMPRESSION AND PLAN: An 83-year-old with chronic obstructive pulmonary disease exacerbation. The patient has bronchospasm on exam, along with increased cough and increased shortness of breath. I will initiate an antibiotic along with steroids and bronchodilators. She has been initiated on sotalol, which can cause bronchospasm. We will be mindful of this addition to her medication regimen if she does not improve as expected. cc: MD César Olivarez MD
[2019-01-09] MEDS: DUONEB (A & A) INH SCH ×3 (03:35→15:48)
[2019-01-09] MEDS: PRILOSEC PO SCH (06:18)
[2019-01-09 06:42] LABS: CALCIUM 9.8 mg/dL (8.8-10.2); CREATININE 1.4 mg/dL (0.5-0.9); MAGNESIUM 2.3 mg/dL (1.5-2.7); POTASSIUM 4.5 mmol/L (3.5-5.1)
[2019-01-09] MEDS: ALPHAGAN P 0.15% OPHTH SOLN BOTH EYES SCH (08:47)
[2019-01-09] MEDS: BETAPACE PO SCH (08:47)
[2019-01-09] MEDS: SYNTHROID PO SCH (08:48)
[2019-01-09] MEDS: KLOR-CON PO SCH (08:48)
[2019-01-09] MEDS: PREDNISONE PO SCH (08:48)
[2019-01-09] MEDS: ASPIRIN PO SCH (08:48)
[2019-01-09] MEDS: NEURONTIN PO SCH ×2 (08:48→12:14)
[2019-01-09] MEDS: ELIQUIS PO SCH (08:48)
[2019-01-09] MEDS: NORVASC PO SCH (08:48)
[2019-01-09] MEDS: CELEXA PO SCH (08:48)
[2019-01-09] MEDS: DOXYCYCLINE PO SCH (08:48)
[2019-01-09] MEDS ORDERED: LASIX IV SCH (09:00)
[2019-01-09 12:53] VITALS: BP 111/57
--- NOTE | 2019-01-09 21:36 | DISCHARGE SUMMARY ---
ADMISSION DATE: 01/06/2019 DISCHARGE DATE: 01/09/2019 DISCHARGE DIAGNOSES: 1. Atrial fibrillation/flutter status was DC cardioversion. 2. Chronic obstructive pulmonary disease exacerbation. 3. Diastolic heart failure. DISCHARGE MEDICATIONS: 1. Doxycycline 100 mg b.i.d. to continues 6 more days for a total of 7 days of treatment. 2. Prednisone 50 mg daily. Continue 6 more days for a total of 7 days of therapy. 3. Sotalol 40 mg b.i.d. 4. Potassium chloride 10 mEq daily. 5. Prilosec 20 mg daily. 6. Levothyroxine 100 mcg daily. 7. Neurontin 300 t.i.d. 8. Furosemide 40 mg in the morning, 20 mg in the evening (this is a dose increase). 9. Celexa 20 mg daily. 10. Sinemet 10/100 one nightly. 11. Alphagan ophthalmic. 12. Aspirin 81 mg daily. 13. Apixaban 5 mg b.i.d. 14. Amlodipine 5 mg daily. 15. Albuterol inhaler take as directed. FOLLOWUP: 1. She is to contact Dr. Ignacio's office on Sunday to arrange followup. 2. She will see me in the clinic in 3 to 4 weeks. HOSPITAL COURSE: Ms. Langley was admitted in a scheduled fashion for a sotalol load. She underwent initiation of the medication without difficulty with subsequent cardioversion performed. She maintained sinus rhythm during the course of the hospitalization. She did have some complaints of cough and shortness of breath during the hospitalization that resulted in a pulmonary consultation and was initiated on bronchodilator, steroids and antibiotics for a COPD exacerbation. At the conclusion of the hospitalization, she felt much better. She was maintaining sinus rhythm and she had no complaints of shortness of breath. Time spent on discharge greater than 30 minutes. cc: César Middleton MD
== END 2019-01-09 16:57 | disposition home or self-care (01) | DRG 309 ==
LOC: DIRADM 07:34 → 2N 07:41
PROVIDERS: ADMIT Internal Medicine Cardiovascular Disease; ATTEND Internal Medicine Cardiovascular Disease

== ENCOUNTER 2019-01-21 16:10 | Inpatient (IN) ==
--- NOTE | 2019-01-21 17:11 | PROVIDER DOCUMENTATION ---
HPI-Neurological Disorder - General Chief Complaint: Syncope Stated Complaint: syncope Time Seen by Provider: 01/21/19 16:28 Source: patient Allergies/Adverse Reactions: Patient Allergies Allergy/AdvReac Type Severity Reaction Status Date / Time morphine AdvReac HIVES Verified 05/16/18 14:59 Penicillins AdvReac NAUSEA Verified 05/16/18 14:59 Sulfa (Sulfonamide AdvReac NAUSEA Verified 05/16/18 14:59 Antibiotics) Home Medications: Home Medication List Medication Instructions Recorded Confirmed Last Taken Type Brimonidine Tartrate [Alphagan P] 1 drop OP DAILY 05/11/17 01/21/19 12/27/18 History 1 DROP Carbidopa/Levodopa [Carbidopa-Levo 1 tab PO HS PRN 05/11/17 01/21/19 12/26/18 History 10-100 Tab] 1 TAB Gabapentin 300 mg PO TID 05/11/17 01/21/19 12/26/18 History 300 MG Levothyroxine [Synthroid] 100 mcg PO DAILY 05/11/17 01/21/19 12/27/18 History 100 MCG Aspirin 81 mg PO DAILY #90 chewtab 05/15/17 01/21/19 12/27/18 Rx 81 MG Albuterol Sulfate [Proair Hfa] 1 puff INH PRN PRN 05/16/18 01/21/19 Unknown History Amlodipine [Norvasc] 5 mg PO DAILY 05/16/18 01/21/19 12/27/18 History 5 MG Potassium Chloride E.r. [Klor-Con] 10 meq PO DAILY #30 tab 12/23/18 01/21/19 12/27/18 Rx 10 MEQ Apixaban [Eliquis] 5 mg PO BID 12/27/18 01/21/19 12/27/18 History 5 mg Furosemide [Lasix] 20 mg PO QHS #30 tab 01/08/19 01/21/19 Unknown Rx Furosemide [Lasix] 40 mg PO QAM #30 tab 01/08/19 01/21/19 Unknown Rx Sotalol [Betapace] 40 mg PO BID #60 tab 01/08/19 01/21/19 Unknown Rx Meclizine [Antivert] 25 mg PO DAILY PRN PRN tab 01/09/19 01/21/19 Unknown Rx Diltiazem HCl [Diltiazem 24Hr ER] 120 mg PO DAILY 01/21/19 01/21/19 Unknown History - History of Present Illness-Neuro Nature of Presenting Problem: Patient with a h/o Afib, CHF, HTN hypot4, reports new onset of syncopal episodes. she had 2 episodes today initially around 11 AM and a repeat episode at 3PM. Both occured suddenly and without warning when she was getting up from a sitting position. She reports brief LOC on both occasions and the son was around on both events and got her up. She denies any unsteady gait, did not trip, denies head injury. Also denies seizure activity or weakness. No incontinence. She only has pain to the left foot Onset/Duration: reports: other (today) Timing: reports: intermittent Context: reports: found unresponsive by family Any recent trauma/injury?: reports: other (fall today with pain to the left foot) New weakness or altered sensation location:: reports: none Cognitive Baseline: alert, oriented x3 Associated Symptoms: reports: loss of consciousness Similar Symptoms Previously?: No Recently seen or treated by another doctor?: No Review of Systems - Adult - REVIEW OF SYSTEMS - ADULT Constitutional: reports: no symptoms reported Eyes: reports: no symptoms reported Ears, Nose, Mouth & Throat: reports: no symptoms reported Cardiovascular: reports: no symptoms reported Respiratory: reports: no symptoms reported Gastrointestinal: reports: no symptoms reported Genitourinary: reports: no symptoms reported Musculoskeletal: reports: see HPI Integumentary: reports: no symptoms reported Neurological: reports: see HPI Psychiatric: reports: no symptoms reported Endocrine: reports: no symptoms reported Hematologic/Lymphatic: reports: no symptoms reported Allergic/Immunologic: reports: no symptoms reported Past History - Adult - PAST MEDICAL HISTORY-ADULT Review of Records: reports: Nursing Assessment Review, Medications Reviewed, Social history reviewed & non-contributory. Major Childhood Illnesses: reports: denies history Cardiovascular: reports: CAD, HTN Respiratory: reports: COPD Gastrointestinal: reports: GERD Obstetrical/Gynecological: reports: denies history Genitourinary: reports: denies history Musculoskeletal: reports: denies history Neurological: reports: denies history Psychiatric: reports: denies history Endocrine/Immune: reports: denies history Other Conditions: reports: denies history - PRIOR SURGERIES/PROCEDURES Surgical/Procedure History: reports: CABG, cardiac stent - IMMUNIZATION STATUS Childhood Immunizations: See Nurse Assessment Flu Vaccine: See Nurse Assessment - FAMILY HISTORY Family History: reviewed, not pertinent - SOCIAL HISTORY Smoking: cigarettes (former) Substance Use: none/never Alcohol Use Frequency: never Physical Exam- Neurological - Physical Exam-Neuro General Appearance: appears well, alert, no apparent distress Eye Exam: bilateral eye: PERRL HENMT: normocephalic/atraumatic Head Injury: no evidence of injury Neck: non-tender, full range of motion, supple Respiratory: chest non-tender, lungs clear, normal breath sounds Cardiovascular: regular rate, rhythm (though has a h/o afib) Abdominal Exam: non tender, soft Extremity: normal range of motion, tenderness (tenderness, proximal left foot) 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, PERRL Motor/Sensory: other (able to move all extremities) Integumentary: normal color Psych/Mental Status: oriented x 3 - [place] Coma Scale Best Eye Response: (4) open spontaneously Best Verbal Response: (5) oriented Best Motor Response: (6) obeys commands Progress - PLAN OF CARE/RESULTS Progress/Plan/Lab Results: Vital Signs - 8 hr 01/21/19 16:20 01/21/19 16:32 01/21/19 16:33 Temperature 98.0 F Pulse Rate 68 Pulse Rate [Sitting] Pulse Rate [Standing] Pulse Rate [Supine] Respiratory Rate 16 Blood Pressure 109/62 109/62 Blood Pressure [Sitting] Blood Pressure [Standing] Blood Pressure [Supine] O2 Sat by Pulse Oximetry 91 L 91 L 01/21/19 16:45 01/21/19 16:59 01/21/19 17:00 Temperature Pulse Rate 66 63 64 Pulse Rate [Sitting] Pulse Rate [Standing] Pulse Rate [Supine] Respiratory Rate 22 18 20 Blood Pressure 121/51 Blood Pressure [Sitting] Blood Pressure [Standing] Blood Pressure [Supine] O2 Sat by Pulse Oximetry 90 L 92 L 92 L 01/21/19 17:15 01/21/19 17:36 01/21/19 17:45 Temperature Pulse Rate 65 65 Pulse Rate [Sitting] Pulse Rate [Standing] Pulse Rate [Supine] Respiratory Rate 16 19 Blood Pressure Blood Pressure [Sitting] Blood Pressure [Standing] Blood Pressure [Supine] O2 Sat by Pulse Oximetry 90 L 88 L 93 L 01/21/19 17:47 01/21/19 17:49 01/21/19 17:51 Temperature Pulse Rate 65 74 72 Pulse Rate [Sitting] Pulse Rate [Standing] Pulse Rate [Supine] Respiratory Rate 16 17 17 Blood Pressure 140/69 116/71 91/43 Blood Pressure [Sitting] Blood Pressure [Standing] Blood Pressure [Supine] O2 Sat by Pulse Oximetry 93 L 83 L 01/21/19 17:59 01/21/19 18:00 01/21/19 18:05 Temperature Pulse Rate 63 63 Pulse Rate [Sitting] 69 Pulse Rate [Standing] 77 Pulse Rate [Supine] 66 Respiratory Rate 19 24 Blood Pressure 154/70 Blood Pressure [Sitting] 116/71 Blood Pressure [Standing] 91/43 Blood Pressure [Supine] 140/69 O2 Sat by Pulse Oximetry 97 98 01/21/19 18:15 01/21/19 18:29 01/21/19 18:30 Temperature Pulse Rate 60 62 63 Pulse Rate [Sitting] Pulse Rate [Standing] Pulse Rate [Supine] Respiratory Rate 22 26 H 17 Blood Pressure 132/76 Blood Pressure [Sitting] Blood Pressure [Standing] Blood Pressure [Supine] O2 Sat by Pulse Oximetry 97 97 97 01/21/19 18:45 01/21/19 18:59 01/21/19 19:00 Temperature Pulse Rate 63 68 64 Pulse Rate [Sitting] Pulse Rate [Standing] Pulse Rate [Supine] Respiratory Rate 23 22 21 Blood Pressure 148/75 Blood Pressure [Sitting] Blood Pressure [Standing] Blood Pressure [Supine] O2 Sat by Pulse Oximetry 96 97 95 01/21/19 19:15 01/21/19 19:29 01/21/19 19:30 Temperature Pulse Rate 65 64 65 Pulse Rate [Sitting] Pulse Rate [Standing] Pulse Rate [Supine] Respiratory Rate 22 22 18 Blood Pressure 131/72 Blood Pressure [Sitting] Blood Pressure [Standing] Blood Pressure [Supine] O2 Sat by Pulse Oximetry 94 L 94 L 96 01/21/19 19:45 Temperature Pulse Rate 66 Pulse Rate [Sitting] Pulse Rate [Standing] Pulse Rate [Supine] Respiratory Rate 25 H Blood Pressure Blood Pressure [Sitting] Blood Pressure [Standing] Blood Pressure [Supine] O2 Sat by Pulse Oximetry 97 Laboratory Results - last 24 hr 01/21/19 01/21/19 01/21/19 16:47 16:47 16:47 WBC 15.32 H RBC 4.51 Hgb 13.6 Hct 42.4 MCV 94.0 MCH 30.2 MCHC 32.1 L RDW Std Deviation 13.0 Plt Count 233 MPV 10.7 H Immature Gran % (Auto) 0.7 H Neut % (Auto) 77.0 H Lymph % (Auto) 13.6 L [place] % (Auto) 7.8 Eos % (Auto) 0.8 Baso % (Auto) 0.1 Immature Gran # (Auto) 0.10 H Neut # (Auto) 11.80 H Lymph # (Auto) 2.08 [place] # (Auto) 1.20 H Eos # (Auto) 0.12 Baso # (Auto) 0.02 PT 18.8 H INR 1.54 PTT (Actin FS) 37.9 Sodium 141 Potassium 3.7 Chloride 98 Carbon Dioxide 30 Anion Gap 13 BUN 15 Creatinine 1.2 H Estimated GFR/1.73 m2 43 BUN/Creatinine Ratio 13 Glucose 154 H POC Glucose Calculated Osmolality 285 Calcium 8.1 L Total Bilirubin 0.67 AST 13 ALT 11 Alkaline Phosphatase 99 Creatine Kinase 38 Troponin T Total Protein 5.9 L Albumin 3.6 Globulin 2.3 Albumin/Globulin Ratio 1.6 TSH Urine Source Urine Color Urine Turbidity Urine pH Ur Specific [place] Urine Protein Ur Glucose (Stick) Ur Ketones (Stick) Urine Blood Urine Nitrite Urine Bilirubin Urobilinogen Dipstick Urine Leukocytes Urine WBC (Auto) Urine RBC (Auto) U Epithel Cells (Auto) Urine Bacteria (Auto) 01/21/19 01/21/19 01/21/19 16:47 16:47 17:18 WBC RBC Hgb Hct MCV MCH MCHC RDW Std Deviation Plt Count MPV Immature Gran % (Auto) Neut % (Auto) Lymph % (Auto) [place] % (Auto) Eos % (Auto) Baso % (Auto) Immature Gran # (Auto) Neut # (Auto) Lymph # (Auto) [place] # (Auto) Eos # (Auto) Baso # (Auto) PT INR PTT (Actin FS) Sodium Potassium Chloride Carbon Dioxide Anion Gap BUN Creatinine Estimated GFR/1.73 m2 BUN/Creatinine Ratio Glucose POC Glucose 153 H Calculated Osmolality Calcium Total Bilirubin AST ALT Alkaline Phosphatase Creatine Kinase Troponin T 0.010 Total Protein Albumin Globulin Albumin/Globulin Ratio TSH 4.16 Urine Source Urine Color Urine Turbidity Urine pH Ur Specific [place] Urine Protein Ur Glucose (Stick) Ur Ketones (Stick) Urine Blood Urine Nitrite Urine Bilirubin Urobilinogen Dipstick Urine Leukocytes Urine WBC (Auto) Urine RBC (Auto) U Epithel Cells (Auto) Urine Bacteria (Auto) 01/21/19 18:00 WBC RBC Hgb Hct MCV MCH MCHC RDW Std Deviation Plt Count MPV Immature Gran % (Auto) Neut % (Auto) Lymph % (Auto) [place] % (Auto) Eos % (Auto) Baso % (Auto) Immature Gran # (Auto) Neut # (Auto) Lymph # (Auto) [place] # (Auto) Eos # (Auto) Baso # (Auto) PT INR PTT (Actin FS) Sodium Potassium Chloride Carbon Dioxide Anion Gap BUN Creatinine Estimated GFR/1.73 m2 BUN/Creatinine Ratio Glucose POC Glucose Calculated Osmolality Calcium Total Bilirubin AST ALT Alkaline Phosphatase Creatine Kinase Troponin T Total Protein Albumin Globulin Albumin/Globulin Ratio TSH Urine Source CLEAN CATCH Urine Color YELLOW Urine Turbidity CLEAR Urine pH 5.5 Ur Specific [place] 1.014 Urine Protein NEGATIVE Ur Glucose (Stick) TRACE Ur Ketones (Stick) NEGATIVE Urine Blood SMALL A Urine Nitrite NEGATIVE Urine Bilirubin NEGATIVE Urobilinogen Dipstick NORMAL Urine Leukocytes NEGATIVE Urine WBC (Auto) <10 Urine RBC (Auto) <10 U Epithel Cells (Auto) <10 Urine Bacteria (Auto) NEGATIVE Orders Category Date Time Status Cardiac Monitoring DIRECTED Care 01/21/19 17:03 Active Finger Stick Blood Sugar (ED) DIRECTED Care 01/21/19 17:03 Completed Nursing [[facility] [place] [facility] Communication Order] DIRECTED Care 01/21/19 17:07 Active Saline Loc NOW Care 01/21/19 17:03 Active CHEST-2 VIEWS [RAD] Stat Exams 01/21/19 17:[address] HEAD W/O CONTRAST [CT] Stat Exams 01/21/19 17:03 Completed FOOT COMPLETE LEFT [RAD] Stat Exams 01/21/19 17:19 Completed CBC WITH DIFF [HEME] Stat Lab 01/21/19 16:47 Completed CK PROFILE [SP CHEM] Stat Lab 01/21/19 16:47 Completed COMPREHENSIVE METABOLIC PANEL [CHEM] Stat Lab 01/21/19 16:47 Completed PROTIME WITH INR [COAG] Stat Lab 01/21/19 16:47 Completed PTT [COAG] Stat Lab 01/21/19 16:47 Completed TROPONIN T Stat Lab 01/21/19 16:47 Completed TSH Stat Lab 01/21/19 16:47 Completed URINALYSIS W/POSS RFLX CULT [URINALYSIS] Stat Lab 01/21/19 18:00 Completed 0.9% Sodium Chloride Inj [Ns] 1,000 ml Med 01/21/19 19:24 Discontinued IV Wide Open mls/hr Acetaminophen [Tylenol] Med 01/21/19 19:25 Discontinued 650 mg PO NOW ONE Pulse Oximetry Stat Oth 01/21/19 17:03 Completed EKG [EKG] Stat Ther 01/21/19 17:03 Draft Result Diagrams: 01/21/19 16:47 01/21/19 16:47 - REASSESSMENT Reassessment #1 Time Reassessed: 08:00 Status: other (no symptoms here in the ED, has a high wbc , no acute CT changes. has positive orthostasis. Will bolous with normal saline and call for admision for further syncope work up) - EKG 1 Time of EKG reading by physician:: 16:33 EKG Read and Signed by:: Lai Taylor Rate: 68 Rhythm: sinus [place]: left - XRAY 1 XRAY Study: Foot ( EXAM: FOOT COMPLETE LEFT HISTORY: foot pain, left TECHNIQUE: Three views COMPARISON: None. FINDINGS: The bones are osteopenic. Mild narrowing to the first metatarsal phalangeal joint. Small calcaneal bone spurs. No fracture. No dislocation. IMPRESSION: Mild arthritis. Electronically signed by Ej Galaviz 01/21/2019 5:38 PM) 2 XRAY Study: Chest ( EXAM: CHEST-2 VIEWS HISTORY: sycope TECHNIQUE: Two views COMPARISON: 01/08/2019 FINDINGS: The lungs are hyperexpanded. The heart is mildly prominent. There are sternal wires and surgical clips. The vessels are not distended. There are no infiltrates. No pleural effusions. IMPRESSION: Stable chest Electronically signed by Ej Galaviz 01/21/2019 5:36 PM) - CT/MRI 1 CT Study: Head ( EXAM: CT HEAD W/O CONTRAST HISTORY: syncope TECHNIQUE: CT head without contrast COMPARISON: None. FINDINGS: No parenchymal hemorrhage. No epidural or subdural hematoma. No subarachnoid hemorrhage. Moderate chronic microvascular ischemic changes. No mass identified on this noncontrasted exam. No hydrocephalus. No sinus opacification. IMPRESSION: 1.No hemorrhage 2.Chronic microvascular ischemic changes This exam was performed using automated exposure control, adjustment of mA or kV according to patient size, and/or use of iterative reconstruction technique. Electronically signed by Ej Galaviz 01/21/2019 5:35 PM 01/21/19 [id number]) - CONSULTS/PCP/HOSPITALIST Notification #1 *Consult/PCP/Hospitalist*: Dr Rivera Time Discussed: 20:23 Consult Disposition: Admit (accept admission) Departure - Departure Date of Disposition Decision: 01/21/19 Time of Disposition Decision: 20:23 DIAGNOSIS: Orthostatic hypotension Syncope Qualifiers: Encounter type: initial encounter Disposition: ADMITTED INPATIENT 09 Certified Medical Emergency: Emergent Condition: Fair Referrals and Follow-Ups: Rima Parkinson MD [Primary Care Provider] - - Critical Care Note This patient required my direct & personal management of CC.: No Attestation - Physician/ ALICIA Attestation Patient care was provided by Advanced Practice Provider:: No The physician spent face to face time with patient:: Yes Advanced Practice Provider documentation review:: Supervising physician onsite and consulted in the evaluation and care of this patient. The physician did have a face to face encounter with the patient.
[2019-01-21 17:30] LABS: BASO# 0.02 X1000 (0.0-0.2); BASO% 0.1 % (0.0-0.8); EOS# 0.12 X1000 (0.0-0.7); EOS% 0.8 % (0.0-10.0); HEMATOCRIT 42.4 % (37.0-47.0); HEMOGLOBIN 13.6 g/dL (12.0-16.0); IMM GRAN% 0.7 % (0.0-0.5); LYMPH# 2.08 X1000 (1.2-3.4); LYMPH% 13.6 % (20.5-51.1); MCH 30.2 PG (27-31); MCHC 32.1 g/dL (33-37); MONO% 7.8 % (1.7-9.3); MPV 10.7 FL (7.4-10.4); PLT 233 X1000 (130-400); RBC 4.51 XMIL (4.2-5.4); WBC 15.32 X1000 (4.8-10.8)
--- NOTE | 2019-01-21 17:37 | Diag Imaging Result Doc PS360 ---
EXAM: CT HEAD W/O CONTRAST HISTORY: syncope TECHNIQUE: CT head without contrast COMPARISON: None. FINDINGS: No parenchymal hemorrhage. No epidural or subdural hematoma. No subarachnoid hemorrhage. Moderate chronic microvascular ischemic changes. No mass identified on this noncontrasted exam. No hydrocephalus. No sinus opacification. IMPRESSION: 1.No hemorrhage 2.Chronic microvascular ischemic changes This exam was performed using automated exposure control, adjustment of mA or kV according to patient size, and/or use of iterative reconstruction technique. Electronically signed by Ej Galaviz 01/21/2019 5:35 PM
[2019-01-21 17:38] LABS: INR 1.54; PROTIME 18.8 Seconds (11.0-16.0)
[2019-01-21 17:39] LABS: ALB/GLOB RATIO 1.6; ALBUMIN 3.6 g/dL (3.5-5.0); CALCIUM 8.1 mg/dL (8.8-10.2); CREATININE 1.2 mg/dL (0.5-0.9); POTASSIUM 3.7 mmol/L (3.5-5.1); PTT 37.9 Seconds (22.3-41.8); TOTAL BILIRUBIN 0.67 mg/dL (0.20-1.00); TOTAL PROTEIN 5.9 g/dL (6.3-8.3)
--- NOTE | 2019-01-21 17:39 | Diag Imaging Result Doc PS360 ---
EXAM: CHEST-2 VIEWS HISTORY: sycope TECHNIQUE: Two views COMPARISON: 01/08/2019 FINDINGS: The lungs are hyperexpanded. The heart is mildly prominent. There are sternal wires and surgical clips. The vessels are not distended. There are no infiltrates. No pleural effusions. IMPRESSION: Stable chest Electronically signed by Ej Galaviz 01/21/2019 5:36 PM
--- NOTE | 2019-01-21 17:40 | Diag Imaging Result Doc PS360 ---
EXAM: FOOT COMPLETE LEFT HISTORY: foot pain, left TECHNIQUE: Three views COMPARISON: None. FINDINGS: The bones are osteopenic. Mild narrowing to the first metatarsal phalangeal joint. Small calcaneal bone spurs. No fracture. No dislocation. IMPRESSION: Mild arthritis. Electronically signed by Ej Galaviz 01/21/2019 5:38 PM
[2019-01-21 18:09] LABS: URINE SOURCE CLEAN CATCH
[2019-01-21 18:12] LABS: BILIRUBIN URINE NEGATIVE (NEGATIVE); BLOOD URINE SMALL (NEGATIVE); COLOR YELLOW; GLUCOSE URINE TRACE mg/dL (NEGATIVE); KETONE URINE NEGATIVE (NEGATIVE); LEUKOCYTES URINE NEGATIVE (NEGATIVE); NITRITE URINE NEGATIVE (NEGATIVE); PH URINE 5.5; PROTEIN URINE NEGATIVE (NEGATIVE); SP GRAVITY URINE 1.014; TURBIDITY URINE CLEAR (CLEAR); UR EPITHELIAL CELLS <10 /HPF (<10); URINE BACTERIA NEGATIVE /HPF; URINE RBC <10 /HPF (<10); URINE WBC <10 /HPF (<10); UROBILINOGEN URINE NORMAL (NORMAL)
[2019-01-21] MEDS ORDERED: NS 1,000 ML IV ONE (19:24)
[2019-01-21] MEDS ORDERED: TYLENOL PO ONE (19:25)
--- NOTE | 2019-01-21 20:04 | EKG Report ---
Test Performed on : 01/21/2019 4:33:36 PM Test Reason : syncope, afib Blood Pressure : / mmHG Vent. Rate : 068 BPM Atrial Rate : 068 BPM P-R Int : 212 ms QRS Dur : 090 ms QT Int : 468 ms P-R-T Axes : 089 -32 -03 degrees QTc Int : 497 ms Sinus rhythm. with 1st degree AV block. Left axis deviation Pulmonary disease pattern Nonspecific ST and T wave abnormality Abnormal ECG When compared with ECG of 08-JAN-2019 12:14, Nonspecific T wave abnormality now evident in Lateral leads Unconfirmed Result
--- NOTE | 2019-01-21 22:52 | HISTORY AND PHYSICAL ---
PRIMARY CARE PHYSICIAN: Dr. Rima Parkinson. CHIEF COMPLAINT: Weakness and passing out. HISTORY OF PRESENTING ILLNESS: An 83-year-old female with a history of chronic atrial fibrillation, hypothyroidism, hyperlipidemia, COPD, coronary artery disease who presented to the emergency department with 1-day history of having several spells where she got weak and passed out. She states that she did not exactly recall what happened. She was evaluated in the emergency department and due to her presenting symptoms, it was thought that we will place her for observation for further for further driveway for further evaluation management. At the time of my examination, patient denied any headache, fever, chills, chest pain, shortness of breath, hemoptysis or weight changes. She states that she feels weak. The patient apparently also has a long history of vertigo symptoms and had been on meclizine previously. PAST MEDICAL HISTORY: Includes hypothyroidism, hyperlipidemia, atrial fibrillation, COPD, coronary artery disease. PAST SURGICAL HISTORY: Coronary bypass, coronary stent, cataract surgery, right knee surgery. ALLERGIES: Penicillin, sulfa, and morphine. CURRENT MEDICATIONS: ProAir inhaler 1 puff inhalation t.i.d., Norvasc 5 mg p.o. daily, Eliquis 5 mg p.o. b.i.d., aspirin 81 mg p.o. daily, carbidopa levodopa 10/100 one p.o. at bedtime, diltiazem 120 mg p.o. daily, Lasix 20 mg p.o. at bedtime and 40 mg p.o. q.a.m., gabapentin 300 mg p.o. t.i.d., levothyroxine 100 mcg p.o. daily, meclizine 25 mg p.o. t.i.d. p.r.n., sotalol 40 mg p.o. b.i.d. SOCIAL HISTORY: She is a former smoker. No history of alcohol or illicit drug use. FAMILY HISTORY: Positive for coronary disease in father and mother. REVIEW OF SYSTEMS: A 14 point review of systems as per the HPI. All other systems negative. PHYSICAL EXAMINATION: GENERAL: Cooperative, friendly female. She is resting more comfortably now. VITAL SIGNS: Temperature 98 degrees, pulse 68, respirations 16, blood pressure 109/62. HEENT: Atraumatic, normocephalic. Extraocular movements intact. PERRLA. NECK: Supple. CHEST: Clear to auscultation. CARDIOVASCULAR: Regular rate and rhythm. ABDOMEN: Soft. Positive bowel sounds. EXTREMITIES: No edema. NEUROLOGIC: She is awake, alert, oriented x3. : No bladder distention. SKIN: Warm. LABORATORIES AND STUDIES: WBC 15.32, hemoglobin 13.6, hematocrit 42.4, platelets 233,000. Sodium 141, potassium 3.7, chloride 98, CO2 is 30, BUN is 15, creatinine is 1.2, glucose is 154. UA is nitrite negative. Chest x-ray is a stable chest. ASSESSMENT: An 83-year-old female with a history of vertigo, hypothyroidism, atrial fibrillation, chronic obstructive pulmonary disease and coronary artery disease, who had presented to the emergency department with 1-day history of having several episodes where she got dizzy and weak and passed out. She was evaluated in the emergency department and due to her presenting symptoms, it was thought that we will place her in observation for further evaluation and management. 1. Several syncopal episodes. 2. Chronic atrial fibrillation on anticoagulation. 3. Vertigo. 4. Coronary artery disease. 5. Hyperlipidemia. PLAN: 1. We will admit patient to medical floor with telemetry. 2. We will check orthostatic blood pressure and pulse. 3. We will consult her blending coordinator. 4. We will restart patient's meclizine. 5. Restart other home medications. 6. The patient is on Eliquis and this will suffice for deep vein thrombosis prophylaxis. 7. We will continue to follow, reassess and make further recommendation based on patient's clinical course. cc: Miki Rivera MD
[2019-01-22] MEDS ORDERED: ANTIVERT PO PRN (01:07)
[2019-01-22] MEDS ORDERED: VENTOLIN HFA INH PRN (01:07)
[2019-01-22] MEDS ORDERED: ZOFRAN IV PRN (01:07)
[2019-01-22] MEDS ORDERED: SINEMET 10/100 PO PRN (01:07)
[2019-01-22] MEDS ORDERED: FLU VACCINE IM ONE (01:30)
[2019-01-22] MEDS: TYLENOL PO PRN ×3 (05:06→22:02)
[2019-01-22] MEDS: SYNTHROID PO SCH ×2 (05:06→06:06)
[2019-01-22 07:54] LABS: BASO# 0.04 X1000 (0.0-0.2); BASO% 0.3 % (0.0-0.8); EOS# 0.47 X1000 (0.0-0.7); EOS% 3.5 % (0.0-10.0); HEMATOCRIT 40.3 % (37.0-47.0); HEMOGLOBIN 12.6 g/dL (12.0-16.0); IMM GRAN# 0.07 X1000 (0.0-0.04); IMM GRAN% 0.5 % (0.0-0.5); LYMPH# 3.03 X1000 (1.2-3.4); LYMPH% 22.9 % (20.5-51.1); MCH 29.6 PG (27-31); MCHC 31.3 g/dL (33-37); MCV 94.6 FL (81-99); MONO# 1.47 X1000 (0.11-0.59); MONO% 11.1 % (1.7-9.3); MPV 10.9 FL (7.4-10.4); NEUT# 8.17 X1000 (1.4-6.5); NEUT% 61.7 % (42.2-75.2); PLT 195 X1000 (130-400); RBC 4.26 XMIL (4.2-5.4); RDW 12.9 % (11.5-14.5); WBC 13.25 X1000 (4.8-10.8)
[2019-01-22 08:17] LABS: CALCIUM 9.1 mg/dL (8.8-10.2); POTASSIUM 4.1 mmol/L (3.5-5.1)
[2019-01-22] MEDS ORDERED: LASIX PO SCH ×2 (09:00→21:00)
[2019-01-22] MEDS ORDERED: CARDIZEM CD PO SCH (09:00)
--- NOTE | 2019-01-22 11:17 | CARDIOLOGY CONSULTATION ---
DATE: 01/22/2019 REASON FOR CONSULTATION: Cardiology was consulted for syncope. HISTORY OF PRESENT ILLNESS: This is an 83-year-old, lady with a history of atrial fibrillation, had cardioversion done twice, one recently. Started on sotalol. Discharged home. She also has a history of hypertension, COPD, coronary artery disease. Since discharge, she had been doing well. However, she walked from her room to the kitchen at home, had a syncopal episode. When she came around, she stood up and walked, and had another episode of syncope. EMT noted that her blood pressure was low and she was brought to the emergency room. She denies any chest pain. She denies any palpitations prior to this episode. She had been taking her medications regularly. Does not complain of having felt weak. She injured her ankle. X-ray was done. There is no fracture of her ankle. She injured her ankle when she had the syncopal episode and fell. REVIEW OF SYSTEMS: A 14-point review of systems was done. GI System: There is no history of nausea, vomiting, or diarrhea. There is no history of hematemesis or melena. Central Nervous System: No focal weakness to suggest a CVA or TIA. Genitourinary System: There is no dysuria or hematuria. PAST MEDICAL HISTORY: 1. Atrial fibrillation, status post cardioversion x2. The recent cardioversion was in December of this year. 2. Anticoagulation therapy. 3. Coronary artery disease, status post coronary artery bypass grafting in 2001 with LADD to left anterior descending artery, SVG to RCA. Patient had cardiac catheterization on 04/30/2017. Left main was normal. LAD 50% proximal and 100% mid. Circumflex 20% proximal, 20% distal, 100% posterolateral branch of the OM. RCA mid 70%. FFR of the mid was 0.79. Treated with a drug-eluting stent. LADD to LAD was patent. Vein graft to RCA was occluded. Last ejection fraction 60%. 4. Paroxysmal atrial fibrillation. 5. COPD. 6. Cataract surgery. 7. Right knee surgery. 8. Diabetes, diet controlled. 9. Hypothyroidism. HOME MEDICATIONS: Include ProAir, Norvasc 5, Eliquis 5 mg p.o. b.i.d., enteric-coated aspirin 81 mg a day, carbidopa/levodopa, diltiazem 120 mg daily, Lasix 40 mg in the morning and 20 mg in the afternoon, gabapentin 300 mg p.o. daily, meclizine 25 mg t.i.d., sotalol 40 mg p.o. b.i.d., Norvasc 5 mg a day. SOCIAL HISTORY: She is a former smoker. REVIEW OF SYSTEMS: A 14-point review of systems was done. PHYSICAL EXAMINATION: Blood pressure when she came in was 109/62. Blood pressure has been normal this morning, 123/53. Jugular venous pressure was normal. First and second heart sounds were heard. There was no S3 gallop. Respiratory System: Normal air entry. There were no crepitations or rhonchi. Abdomen was soft, nontender. There was no guarding or rigidity. Bowel sounds were heard. Central Nervous System: Alert and was moving all 4 extremities. Examination of her extremities revealed mild tenderness on the right ankle. LABORATORY DATA: Cardiac enzymes were negative. Laboratory examination revealed a sodium of 142, potassium 4.1, BUN 12, creatinine 1.0. WBC 13.2, hemoglobin 12.6, hematocrit 40, platelet count of 195,000. Urine examination unremarkable. Electrocardiogram revealed normal sinus rhythm, first-degree AV block, QTc was 497. ASSESSMENT AND PLAN: Ms. Sandra Langley is an 83-year-old, lady with a history of atrial fibrillation. Underwent cardioversion earlier this year and recently in December. Was discharged home on sotalol. Has a history of hypertension, chronic obstructive pulmonary disease, coronary artery disease, status post coronary artery bypass grafting in the past and underwent stent placement to the [place] right coronary artery in 2018. Had two episodes of syncope. She was told her blood pressure was low when emergency medical lab technician was at the site. So far, her telemetry has been in sinus rhythm. QTc has been normal. RECOMMENDATIONS: 1. I suspect her syncopal episode is likely to be related to the multiple medications she is on. I will discontinue the Cardizem, leave her on Norvasc for hypertension. She was taking Lasix 60 mg daily. We will cut it down to 20 mg a day. 2. As far as her antiarrhythmics are concerned, she is on sotalol 40 mg twice daily. She is in sinus rhythm. QTc was unremarkable. We will make sure there is no proarrhythmia. We will monitor her overnight and she has an appointment to see Dr. Middleton later this month. We will discharge her home if there is normal rhythm, with 2 week Holter monitoring as an outpatient. 3. She has known coronary artery disease with stent placement to the right coronary artery and coronary artery bypass grafting. She does not complain of any chest pain. However, we will make sure there is no ischemia. We will set her up to undergo a Lexiscan Cardiolite stress test in the morning. 4. Anticoagulation therapy. She is on Eliquis. We will continue with the Eliquis. 5. Chronic obstructive pulmonary disease. Continue with her home inhalers. Thank you for the consult. We will follow hospital course. cc: Ady Bullock MD
[2019-01-22] MEDS: ALPHAGAN P 0.15% OPHTH SOLN RIGHT EYE SCH (11:41)
[2019-01-22] MEDS: BETAPACE PO SCH ×2 (11:41→21:57)
[2019-01-22] MEDS: NEURONTIN PO SCH ×3 (11:42→21:56)
[2019-01-22] MEDS: ELIQUIS PO SCH ×2 (11:42→21:57)
[2019-01-22] MEDS: ASPIRIN PO SCH (11:43)
[2019-01-22] MEDS: NORVASC PO SCH (11:43)
[2019-01-23] MEDS: SYNTHROID PO SCH (06:10)
--- NOTE | 2019-01-23 07:32 | EKG Report ---
Test Performed on : 01/23/2019 07:14:09 AM Test Reason : syncope Blood Pressure : / mmHG Vent. Rate : 069 BPM Atrial Rate : 069 BPM P-R Int : 226 ms QRS Dur : 096 ms QT Int : 444 ms P-R-T Axes : 082 -19 020 degrees QTc Int : 475 ms Sinus rhythm. with 1st degree AV block. Otherwise normal ECG When compared with ECG of 21-JAN-2019 16:33, (Unconfirmed) Nonspecific T wave abnormality no longer evident in Lateral leads Unconfirmed Result
[2019-01-23] MEDS ORDERED: LEXISCAN ONE (08:27)
[2019-01-23] MEDS ORDERED: LASIX PO SCH (09:00)
[2019-01-23] MEDS: TYLENOL PO PRN ×2 (10:53→16:28)
[2019-01-23] MEDS: NORVASC PO SCH (10:54)
[2019-01-23] MEDS: BETAPACE PO SCH (10:54)
[2019-01-23] MEDS: ELIQUIS PO SCH (10:57)
[2019-01-23] MEDS: ASPIRIN PO SCH (10:57)
[2019-01-23] MEDS: NEURONTIN PO SCH ×2 (10:57→13:47)
[2019-01-23] MEDS: ALPHAGAN P 0.15% OPHTH SOLN RIGHT EYE SCH (10:58)
--- NOTE | 2019-01-23 12:49 | Diag Imaging Result Document ---
PROCEDURE NAME: MYOCARDIAL PERF SCAN, STR/REST - 01/22/2019 STUDY PERFORMED: Lexiscan Cardiolite stress. FINDINGS: Lexiscan was infused per standard protocol. There was no chest pain. Stress electrocardiogram was negative for ischemia. Following Lexiscan infusion, Cardiolite was injected; 39.9 mCi of Cardiolite was injected for the rest phase, 38.7 mCi of Cardiolite was injected for the stress phase. Images revealed chest wall attenuation. Normal left ventricular cavity size. Normal myocardial perfusion. Left ventricular ejection fraction by gated SPECT was 75%. CONCLUSIONS: 1. No chest pain. 2. Negative Lexiscan stress electrocardiogram. 3. Normal myocardial perfusion. 4. Left ventricular ejection fraction by gated SPECT was 75%. cc: MD Love Telles PA
[2019-01-23 12:58] VITALS: BP 154/78
--- NOTE | 2019-01-24 13:38 | DISCHARGE SUMMARY ---
ADMISSION DATE: 01/22/2019 DISCHARGE DATE: 01/23/2019 DISCHARGE DIAGNOSIS: 1. Syncopal episodes resolved. 2. Chronic atrial fibrillation on anticoagulation. 3. [*] 4. Coronary artery disease stable. 5. Hyperlipidemia. CONSULTATIONS: Dr. Bullock from Cardiology. PROCEDURES: 1. Chest x-ray done on admission showed stable chest. 2. Foot x-ray showed mild arthritis. 3. Myocardial perfusion scan nuclear medicine showed no chest pain, negative Lexiscan stress. Echocardiogram normal myocardial perfusion, left ventricular ejection fraction of 75%. HOSPITAL COURSE: This is an 83-year-old female with past medical history of chronic atrial fibrillation, hypothyroidism, hyperlipidemia, COPD who was admitted to the hospital because of recurrent syncope though to be secondary to heart problem. That regard cardiology was consulted. They think that those symptoms was related to medication that this patient was taking so they decided to change and the Cardizem CD was stopped and they reduced the Lasix from 60 to 20 mg p.o. daily. They ordered Lexiscan stress test to rule out any coronary artery disease likely source of the symptoms. That exam returned normal as we mentioned above so patient is going to be discharged in stable condition. DISCHARGE PHYSICAL EXAMINATION: Vitals: Temperature 98.3 degrees, heart rate 75, respiratory rate 24, blood pressure 154/78, O2 saturation 95% on room air . General: 83-year-old female lying in bed in no acute distress. Cardiovascular: S1, S2 heard. No murmurs, gallops, or rubs. Regular rate and rhythm. Respiratory: Clear bilaterally to auscultation. No work of breathing or using accessory muscles. Abdomen: Soft, nontender to palpation. Bowel sounds present. No organomegaly. Extremities: No clubbing, cyanosis, or edema. Peripheral pulses present in both legs. Neurological: Patient alert, oriented x3, moves 4 extremities. DISCHARGE DISPOSITION: Home to self-care. FOLLOWUP: With Dr. César Middleton in 4 months. MEDICATIONS: 1. Levothyroxine 100 mcg 1 tablet p.o. daily. 2. Carbidopa levodopa 10/100 one tab p.o. at bedtime. 3. Gabapentin 300 mg [*] tablet p.o. 3 times per day. 4. Alphagan 1 drop ophthalmic daily. 5. Aspirin 81 mg 1 tablet p.o. daily. 6. Albuterol 1 puff inhalation as needed for shortness of breath. 7. Amlodipine 5 mg 1 tablet p.o. daily. 8. Potassium chloride 10 mEq 1 tablet p.o. daily. 9. Eliquis 5 mg p.o. b.i.d. 10. Sotalol 40 mg 1 tab p.o. b.i.d. 11. Furosemide 40 mg p.o. daily. 12. Meclizine 25 mg p.o. daily p.r.n. for motion sickness. cc: Tino Robbins MD
== END 2019-01-23 16:52 | disposition home or self-care (01) | DRG 312 ==
LOC: SUPCPDRO → ED 16:10 → 3N 16:10 → SUATTDRO 01-22 00:14
PROVIDERS: ATTEND Internal Medicine

== ENCOUNTER 2019-04-12 11:59 | Inpatient (IN) ==
[2019-04-12 13:44] LABS: ALLEN TEST NO; BE 1.7 mmoll (-3.0-3.0); BLOOD TYPE ARTERIAL; HCO3-(ACT) 26.1 mmoll (20.0-26.0); METHB 1.4 % (0.0-1.5); O2(CT) 15.7 mL/dL (15.0-23.0); PCO2(98.6) 38 mmHg (35-45); PO2(98.6) 61 mmHg (60-100); SAMPLE BLOOD; SAO2 95.6 % (95.0-100.0); THB 12.3 g/dL (11.5-17.4); pH(98.6) 7.44 (7.35-7.45)
[2019-04-12 13:48] LABS: MODALITY ROOM AIR
--- NOTE | 2019-04-12 14:11 | Diag Imaging Result Doc PS360 ---
CHEST-2 VIEWS - 04/12/2019 INDICATION: short of breath COMPARISON: 01/21/2019 FINDINGS: There is extensive infiltrate in the left lower lobe. Heart size is normal. No pneumothorax or pleural effusion. IMPRESSION: Left lower lobe pneumonia. Electronically signed by Andrew Bustos 04/12/2019 2:08 PM
[2019-04-12 14:36] LABS: BASO# 0.17 X1000 (0.0-0.2); BASO% 1.2 % (0.0-0.8); EOS# 0.06 X1000 (0.0-0.7); EOS% 0.4 % (0.0-10.0); IMM GRAN# 0.06 X1000 (0.0-0.04); IMM GRAN% 0.4 % (0.0-0.5); LYMPH# 2.59 X1000 (1.2-3.4); LYMPH% 17.6 % (20.5-51.1); MCH 30.5 PG (27-31); MCHC 32.4 g/dL (33-37); MCV 93.9 FL (81-99); MONO# 2.05 X1000 (0.11-0.59); MONO% 13.9 % (1.7-9.3); MPV 10.6 FL (7.4-10.4); NEUT# 9.77 X1000 (1.4-6.5); NEUT% 66.5 % (42.2-75.2); PLT 309 X1000 (130-400); RBC 3.94 XMIL (4.2-5.4); RDW 13.1 % (11.5-14.5)
[2019-04-12 14:44] LABS: AGAP 9; ALB/GLOB RATIO 1.1; ALBUMIN 3.3 g/dL (3.5-5.0); ALKALINE PHOSPHATASE 114 U/L (32-104); BUN 10 mg/dL (8-22); CALCIUM 9.1 mg/dL (8.8-10.2); CHLORIDE 92 mmol/L (98-107); COSMO 254; CREATININE 0.8 mg/dL (0.5-0.9); ESTIMATED GFR > 60; GLUCOSE 123 mg/dL (70-104); GOT 20 U/L (10-30); GPT 12 U/L (10-36); POTASSIUM 4.4 mmol/L (3.5-5.1); SODIUM 126 mmol/L (136-145); TCO2 25 mmol/L (25-35); TOTAL BILIRUBIN 0.95 mg/dL (0.20-1.00); TOTAL PROTEIN 6.3 g/dL (6.3-8.3)
[2019-04-12 14:56] LABS: INR 1.65; PROTIME 19.8 Seconds (11.0-16.0)
[2019-04-12 14:57] LABS: PTT 58.7 Seconds (22.3-41.8)
[2019-04-12 15:06] LABS: URINE SOURCE CLEAN CATCH
[2019-04-12 15:14] LABS: BILIRUBIN URINE NEGATIVE (NEGATIVE); BLOOD URINE MODERATE (NEGATIVE); COLOR YELLOW; GLUCOSE URINE NEGATIVE (NEGATIVE); KETONE URINE NEGATIVE (NEGATIVE); LEUKOCYTES URINE NEGATIVE (NEGATIVE); NITRITE URINE NEGATIVE (NEGATIVE); PROTEIN URINE NEGATIVE (NEGATIVE); TURBIDITY URINE CLEAR (CLEAR); UROBILINOGEN URINE 2 mg/dL (NORMAL)
[2019-04-12 15:45] LABS: UR EPITHELIAL CELLS <10 /HPF (<10); URINE BACTERIA NEGATIVE /HPF; URINE CASTS NONE SEEN; URINE CRYSTALS NONE SEEN; URINE RBC <10 /HPF (<10); URINE SMALL ROUND CELLS TRANS PRESENT; URINE WBC <10 /HPF (<10); URINE YEAST NONE SEEN
[2019-04-12] MEDS ORDERED: SOLU-MEDROL IV ONE (15:50)
[2019-04-12] MEDS ORDERED: LEVAQUIN 750 MG/D5W 750 MG/150 ML IVPB IV ONE (15:51)
--- NOTE | 2019-04-12 16:09 | PROVIDER DOCUMENTATION ---
This chart was entered by Luisa Fernandez Scribe, acting as scribe for Britton Aranda MD. HPI-General Adult - General Chief Complaint: Cough Stated Complaint: FEVER COUGH CANT EAT Time Seen by Provider: 04/12/19 12:49 Source: patient Allergies/Adverse Reactions: Patient Allergies Allergy/AdvReac Type Severity Reaction Status Date / Time morphine AdvReac HIVES Verified 05/16/18 14:59 Penicillins AdvReac NAUSEA Verified 05/16/18 14:59 Sulfa (Sulfonamide AdvReac NAUSEA Verified 05/16/18 14:59 Antibiotics) Home Medications: Home Medication List Medication Instructions Recorded Confirmed Last Taken Type Brimonidine Tartrate [Alphagan P] 1 drop OP DAILY 05/11/17 04/12/19 12/27/18 History 1 DROP Carbidopa/Levodopa [Carbidopa-Levo 1 tab PO HS PRN 05/11/17 04/12/19 12/26/18 History 10-100 Tab] 1 TAB Gabapentin 300 mg PO TID 05/11/17 04/12/19 12/26/18 History 300 MG Levothyroxine [Synthroid] 100 mcg PO DAILY 05/11/17 04/12/19 12/27/18 History 100 MCG Aspirin 81 mg PO DAILY #90 chewtab 05/15/17 04/12/19 12/27/18 Rx 81 MG Albuterol Sulfate [Proair Hfa] 1 puff INH PRN PRN 05/16/18 04/12/19 Unknown History Amlodipine [Norvasc] 5 mg PO DAILY 05/16/18 04/12/19 12/27/18 History 5 MG Potassium Chloride E.r. [Klor-Con] 10 meq PO DAILY #30 tab 12/23/18 04/12/19 12/27/18 Rx 10 MEQ Apixaban [Eliquis] 5 mg PO BID 12/27/18 04/12/19 12/27/18 History 5 mg Furosemide [Lasix] 40 mg PO QAM #30 tab 01/08/19 04/12/19 Unknown Rx Sotalol [Betapace] 40 mg PO BID #60 tab 01/08/19 04/12/19 Unknown Rx Meclizine [Antivert] 25 mg PO DAILY PRN PRN tab 01/09/19 04/12/19 Unknown Rx - History of Present Illness -Gen Adult Nature of Presenting Problems: pt is an 83 yowf presenting to er w/cc 2-3 days of sob, productive mason cough, luq tenderness, fever yest that resolved today by taking mucinex and tylenol and dysuria all week. pt has hx of copd, afib and takes elaquis. former smoker. Severity: reports: mild Onset/Duration: reports: 2 days ago, 3 days ago Timing: reports: still present Context/Activities at Onset: reports: none Modifying Factors: improves with: nothing Associated Symptoms: reports: cough (prod mason), fever/chills (resolved today), shortness of breath, other (abd pain luq) Review of Systems - Adult - REVIEW OF SYSTEMS - ADULT Constitutional: reports: see HPI, fever. denies: chills, fatique, night sweats Eyes: reports: no symptoms reported Ears, Nose, Mouth & Throat: reports: no symptoms reported Cardiovascular: reports: no symptoms reported Respiratory: reports: see HPI, cough, excessive sputum production, shortness of breath. denies: hemoptysis, pleurisy Gastrointestinal: reports: see HPI, abdominal pain (luq). denies: diarrhea, difficulty swallowing, frequent heartburn Genitourinary: reports: see HPI, dysuria. denies: hematuria, hesitency, incontinence Musculoskeletal: reports: no symptoms reported Integumentary: reports: no symptoms reported Neurological: reports: no symptoms reported Psychiatric: reports: no symptoms reported Endocrine: reports: no symptoms reported Hematologic/Lymphatic: reports: no symptoms reported Allergic/Immunologic: reports: no symptoms reported All Other Systems: Reviewed and Negative Past History - Adult - PAST MEDICAL HISTORY-ADULT Review of Records: reports: Nursing Assessment Review, Medications Reviewed, Social history reviewed & non-contributory. Major Childhood Illnesses: reports: denies history Cardiovascular: reports: CAD, HTN Respiratory: reports: COPD Gastrointestinal: reports: GERD Obstetrical/Gynecological: reports: denies history Genitourinary: reports: denies history Musculoskeletal: reports: denies history Neurological: reports: denies history Psychiatric: reports: denies history Endocrine/Immune: reports: denies history Other Conditions: reports: denies history - PRIOR SURGERIES/PROCEDURES Surgical/Procedure History: reports: CABG, cardiac stent - IMMUNIZATION STATUS Childhood Immunizations: See Nurse Assessment Flu Vaccine: See Nurse Assessment - FAMILY HISTORY Family History: reviewed, not pertinent - SOCIAL HISTORY Smoking: other (former) Substance Use: none/never Physical Exam-General - PHYSICAL EXAM-ADULT Initial Vital Signs Reviewed: Yes - CONSTITUTIONAL General Appearance: appears well, alert, no apparent distress. negative: lethargic, slow to respond, obtunded - EYES Eyes: PERRL/EOMI, pink conjunctivae - HEAD, EARS, NOSE, MOUTH & THROAT HENMT: normocephalic/atraumatic, moist mucous membranes - NECK Neck: non-tender, full range of motion, supple, normal inspection - RESPIRATORY Respiratory: chest non-tender, normal breath sounds, no pleuratic chest pain, no respiratory distress, no accessory muscle use, wheezing (bilat bases). negative: lungs clear, crackles, rales, rhonchi - CARDIOVASCULAR Cardiovascular: normal peripheral pulses, no edema, no gallop, no JVD, no murmur , irregularly irregular (afib hx). negative: regular rate, rhythm, JVD, bradycardia, tachycardia - GASTROINTESTINAL (ABDOMEN) Abdominal Exam: normal bowel sounds, soft, tenderness (mild luq on palp). negative: non tender, guarding, rigid - MUSCULOSKELETAL Back Exam: normal inspection Extremity: normal range of motion, non-tender, normal inspection, no pedal edema , no calf tenderness, normal capillary refill, pelvis stable. negative: slow capillary refill, swelling, tenderness Peripheral Pulses: radial (R): 2+ - SKIN Integumentary: normal color, normal turgor, warm/dry - NEUROLOGIC Neurologic: grossly normal, no motor/sensory deficits - PSYCHIATRIC Psych/Mental Status: normal mood/affect, normal thought content, normal thought process, oriented x 3 Progress - PLAN OF CARE/RESULTS Progress/Plan/Lab Results: Vital Signs - 8 hr 04/12/19 12:15 Temperature 97.6 F Pulse Rate 77 Respiratory Rate 19 Blood Pressure 137/72 O2 Sat by Pulse Oximetry 91 L 04/12/19 12:40 Influenza Screen - Final Nasopharyngeal Orders Category Date Time Status Cardiac Monitoring DIRECTED Care 04/12/19 13:08 Active Saline Loc NOW Care 04/12/19 13:08 Active CHEST-2 VIEWS [RAD] Stat Exams 04/12/19 13:10 Ordered ABG [RESP] Routine Lab 04/12/19 13:09 Ordered BLOOD CULTURE [BLDCUL] Stat Lab 04/12/19 13:09 Ordered CBC WITH ELECTRONIC DIFF [HEME] Stat Lab 04/12/19 13:09 Uncollected COMPREHENSIVE METABOLIC PANEL [CHEM] Stat Lab 04/12/19 13:09 Uncollected INFLUENZA SCREEN A/B Stat Lab 04/12/19 12:40 Completed TROPONIN T HIGH SENSITIVITY Stat Lab 04/12/19 13:09 Uncollected URINALYSIS W/POSS RFLX CULT [URINALYSIS] Stat Lab 04/12/19 13:09 Uncollected EKG [EKG] Stat Ther 04/12/19 13:08 Ordered Result Diagrams: 04/12/19 14:05 04/12/19 14:05 - EKG 1 Time of EKG reading by physician:: 13:01 EKG Read and Signed by:: Britton Aranda EKG Interpretation (*Must complete 3 of following elements*): Normal Rate: 85 Rhythm: NSR [place]: normal QRS: normal [place] Interval: normal ST Wave: normal - XRAY 1 XRAY Study: Chest Impression: Abnormal, See EMR Report ( Signed CHEST-2 VIEWS - 04/12/2019 INDICATION: short of breath COMPARISON: 01/21/2019 FINDINGS: There is extensive infiltrate in the left lower lobe. Heart size is normal. No pneumothorax or pleural effusion. IMPRESSION: Left lower lobe pneumonia. Electronically signed by Andrew Bustos 04/12/2019 2:08 PM) - CONSULTS/PCP/HOSPITALIST Notification #1 *Consult/PCP/Hospitalist*: Opal Time Discussed: 15:26 Consult Disposition: Admit Departure - Departure Date of Disposition Decision: 04/12/19 Time of Disposition Decision: 15:53 DIAGNOSIS: Hyponatremia Pneumonia Qualifiers: Pneumonia type: aspiration pneumonia Aspiration pneumonia type: unspecified Laterality: left Lung location: lower lobe of lung Qualified Code(s): J69.0 - Pneumonitis due to inhalation of food and vomit LLL pneumonia Qualifiers: Pneumonia type: due to unspecified organism Qualified Code(s): J18.1 - Lobar pneumonia, unspecified organism Disposition: ADMITTED INPATIENT 09 Certified Medical Emergency: Emergent Condition: Stable Referrals and Follow-Ups: Rima Parkinson MD [Primary Care Provider] - - Critical Care Note This patient required my direct & personal management of CC.: No Attestation - Physician/ ALICIA Attestation Patient care was provided by Advanced Practice Provider:: No The physician spent face to face time with patient:: Yes Advanced Practice Provider documentation review:: Supervising physician onsite and consulted in the evaluation and care of this patient. The physician did have a face to face encounter with the patient. This chart was documented by the indicated scribe, (Luisa Fernandez, Jian) and accurately reflects the services I performed and decisions made by me, Britton Aranda MD, as attested by the provider's signature.
[2019-04-12] MEDS ORDERED: TYLENOL PO PRN (16:22)
[2019-04-12] MEDS ORDERED: ZOFRAN IV PRN (16:22)
[2019-04-12] MEDS ORDERED: NS NEB INH SCH (16:30)
[2019-04-12] MEDS ORDERED: NS 1,000 ML IV SCH (16:30)
[2019-04-12] MEDS ORDERED: SINEMET 10/100 PO PRN (16:47)
[2019-04-12] MEDS ORDERED: ANTIVERT PO PRN (16:47)
[2019-04-12] MEDS: NEURONTIN PO SCH (17:26)
[2019-04-12] MEDS: XOPENEX NEB INH SCH ×2 (19:44→23:08)
[2019-04-12] MEDS: ELIQUIS PO SCH (20:39)
[2019-04-12] MEDS: BETAPACE PO SCH (20:39)
--- NOTE | 2019-04-12 20:45 | HISTORY AND PHYSICAL ---
CHIEF COMPLAINT: Shortness of breath, cough, fever. HISTORY OF PRESENT ILLNESS: This is an 83-year-old female with a past medical history of chronic atrial fibrillation, hypothyroidism, hyperlipidemia, and possible chronic obstructive pulmonary disease. She was discharged on 03/25/2018 due to a syncopal episode. Presented this time due to shortness of breath for at least 3 or 4 days, associated with chills and subjective fever. As per the patient, also she has been coughing up some green-brown phlegm, and she does have some chest pain associated in the left lower thoracic area. She denies nausea, vomiting, diarrhea, constipation, dizziness, syncopal episodes. She is also complaining of some dysuria, but the urinalysis is negative for bacteria, nitrates. It has a little bit of blood, though a moderate amount. I will get a sputum culture and urine culture as well. Clinically, she seems to be dehydrated. Laboratory initially showed a WBC of 14.7, hemoglobin of 12, sodium level of 126 and chloride level of 92. She will receive a liter of normal saline, at 75 mL/h, and we will reevaluate this patient in the morning. She will be placed on a diet as well. I will hold her Lasix since she looks dehydrated. X-ray showed left lower lobe pneumonia. She will be placed on antibiotics and breathing treatments as well. REVIEW OF SYSTEMS: All the 14 points of the review of systems were reviewed, all of them negative except as per HPI. PAST MEDICAL HISTORY: Hypothyroidism, hyperlipidemia, atrial fibrillation, COPD, coronary artery disease. PAST SURGICAL HISTORY: Coronary bypass, coronary stent, cataract surgery and right knee surgery. ALLERGIES: Penicillin, sulfa, and morphine. SOCIAL HISTORY: She is a former smoker. No alcohol or drugs. FAMILY HISTORY: Positive for coronary artery disease in father and mother. PHYSICAL EXAM: VITAL SIGNS: Temperature 97.6, pulse 74, respiratory rate 30, blood pressure 135/70, oxygen saturation 92% on room air. HEENT: Head normocephalic. No trauma. PERRLA. NECK: Supple. No JVD. No masses. Central trachea. CHEST: Decreased breath sounds globally with prolonged expiratory phase and some end-expiratory wheezing. Bilateral rhonchi at the bases, mostly on the left side with crepitus on the left side as well. ABDOMEN: Soft, nontender, nondistended. No hepatosplenomegaly. EXTREMITIES: No edema. No clubbing, no cyanosis. NEUROLOGICAL: The patient is awake, alert. She is oriented x3. No focal deficits. Mouth is dry. LABORATORY: WBCs 14.7, hemoglobin 12, hematocrit 37, platelets 309. Sodium 126, potassium 4.4, chloride 92, bicarbonate 25, BUN 10, creatinine 0.8, glucose 123, calcium 9.1. AST 20, ALT 12, alkaline phosphatase 114, albumin 3.3. ASSESSMENT AND PLAN: 1. Left lower lobe pneumonia. I will put this patient on antibiotics, levofloxacin. I will hydrate this patient a little bit, and I will put her on breathing treatments. She is allergic to penicillins and sulfas. We will monitor this patient closely. 2. History of syncopal episodes. Aware. 3. Chronic atrial fibrillation. Will continue with home medications including anticoagulation. 4. Coronary artery disease, stable. No typical chest pain at this moment. 5. Hyperlipidemia. Continue with same management. 6. Hypothyroidism. Continue with levothyroxine. 7. Hypertension. Continue home medications. 8. Dehydration. Kidney function seems to be stable. She is hyponatremic and hypochloremic, so I will give her a dose of normal saline to see how she does. 9. Hyponatremia with hypochloremia as above. cc: Vernon Hansen MD
[2019-04-13] MEDS: SYNTHROID PO SCH (06:01)
[2019-04-13 07:52] LABS: BASO# 0.02 X1000 (0.0-0.2); BASO% 0.2 % (0.0-0.8); HEMATOCRIT 36.3 % (37.0-47.0); HEMOGLOBIN 11.8 g/dL (12.0-16.0); IMM GRAN# 0.12 X1000 (0.0-0.04); IMM GRAN% 1.1 % (0.0-0.5); LYMPH# 1.64 X1000 (1.2-3.4); LYMPH% 15.5 % (20.5-51.1); MCH 30.1 PG (27-31); MCHC 32.5 g/dL (33-37); MCV 92.6 FL (81-99); MONO# 0.61 X1000 (0.11-0.59); MONO% 5.8 % (1.7-9.3); MPV 10.3 FL (7.4-10.4); NEUT# 8.17 X1000 (1.4-6.5); NEUT% 77.4 % (42.2-75.2); PLT 321 X1000 (130-400); RBC 3.92 XMIL (4.2-5.4); RDW 12.6 % (11.5-14.5); WBC 10.56 X1000 (4.8-10.8)
[2019-04-13 08:11] LABS: AGAP 10; ALB/GLOB RATIO 0.8; ALBUMIN 3.2 g/dL (3.5-5.0); ALKALINE PHOSPHATASE 102 U/L (32-104); BUN 13 mg/dL (8-22); CALCIUM 9.3 mg/dL (8.8-10.2); CHLORIDE 99 mmol/L (98-107); COSMO 277; CREATININE 0.8 mg/dL (0.5-0.9); ESTIMATED GFR > 60; GLUCOSE 161 mg/dL (70-104); GOT 20 U/L (10-30); GPT 14 U/L (10-36); MAGNESIUM 2.1 mg/dL (1.5-2.7); POTASSIUM 4.7 mmol/L (3.5-5.1); SODIUM 137 mmol/L (136-145); TCO2 28 mmol/L (25-35); TOTAL BILIRUBIN 0.45 mg/dL (0.20-1.00)
[2019-04-13] MEDS: BETAPACE PO SCH ×2 (10:08→20:05)
[2019-04-13] MEDS: ELIQUIS PO SCH ×2 (10:08→20:05)
[2019-04-13] MEDS: NEURONTIN PO SCH ×3 (10:08→17:20)
[2019-04-13] MEDS: NORVASC PO SCH (10:08)
[2019-04-13] MEDS: ASPIRIN PO SCH (10:09)
[2019-04-13] MEDS: LEVAQUIN 750 MG/D5W 750 MG/150 ML IVPB IV SCH (10:13)
[2019-04-13] MEDS: ALPHAGAN P 0.15% OPHTH SOLN BOTH EYES SCH (10:13)
[2019-04-13] MEDS: XOPENEX NEB INH SCH ×3 (10:55→23:00)
--- NOTE | 2019-04-13 13:07 | PROGRESS NOTE ---
DATE: 04/13/2019 SUBJECTIVE: The patient seems to be feeling a little bit better compared with yesterday. Laboratory looks better as well. WBC improved, as well as her sodium level. I will hold for now, her furosemide today, and hopefully tomorrow will restart it. I will see how she eats today because she was not able to eat or drink too much for the past few days. She seems to be hydrated now. I will get a new chest x-ray in the morning. OBJECTIVE: Vital Signs: Temperature 97.8 degrees, pulse 69, respiratory rate 18, blood pressure 139/58, oxygen saturation 97% on 2 L of nasal cannula. HEENT: Head normocephalic. No trauma. PERRLA. Neck: Supple. No JVD. No masses. Central trachea. Chest: Decreased breath sounds globally with prolonged expiratory phase and some end-expiratory wheezing. Bilateral rhonchi at the bases, mostly it is on the left side. Abdomen: Soft, nontender, nondistended. No hepatosplenomegaly. Extremities: No edema, no clubbing, no cyanosis. Neurological: The patient is awake and alert. She is oriented x3. No focal deficits. LABORATORY DATA: WBC 10.5, hemoglobin 11.8, hematocrit 36.3, platelets 321,000. Sodium 137, potassium 4.7, chloride 99, bicarbonate 28, BUN 13, creatinine 0.8, glucose 161, calcium 9.3. AST 20, ALT 14, alkaline phosphatase 102, albumin 3.2. ASSESSMENT AND PLAN: 1. Left lower lobe pneumonia. Continue with antibiotics, levofloxacin. She is allergic to penicillins and sulfas. The patient seems to be more hydrated today. Continue breathing treatments. I will get a new x-ray tomorrow. 2. History of syncopal episode on previous admission. Aware. 3. Chronic atrial fibrillation. Continue with home medication, including anticoagulation. 4. History of coronary artery disease. Stable. No chest pain at this moment. 5. Hyperlipidemia. Continue with the same management. 6. Hypothyroidism. Continue with levothyroxine. 7. Hypertension. Continue home medication. 8. Dehydration. Resolved. Kidney function is stable, and she seems to be more hydrated. 9. Hyponatremia and hypochloremia. Resolved. cc: Vernon Hansen MD
[2019-04-14] MEDS: SYNTHROID PO SCH ×2 (05:40→05:59)
[2019-04-14 07:20] LABS: HEMATOCRIT 37.3 % (37.0-47.0); HEMOGLOBIN 11.9 g/dL (12.0-16.0); MCH 30.1 PG (27-31); MCHC 31.9 g/dL (33-37); MCV 94.4 FL (81-99); MPV 10.3 FL (7.4-10.4); RBC 3.95 XMIL (4.2-5.4); RDW 12.9 % (11.5-14.5); WBC 14.11 X1000 (4.8-10.8)
--- NOTE | 2019-04-14 07:27 | EKG Report ---
Test Performed on : 04/12/2019 2:58:09 PM Test Reason : COUGH/CP Blood Pressure : / mmHG Vent. Rate : 085 BPM Atrial Rate : 085 BPM P-R Int : 196 ms QRS Dur : 088 ms QT Int : 400 ms P-R-T Axes : 071 -20 -02 degrees QTc Int : 476 ms Normal sinus rhythm. Normal ECG When compared with ECG of 23-JAN-2019 07:14, [place] interval has decreased Unconfirmed Result
[2019-04-14] MEDS: XOPENEX NEB INH SCH ×3 (07:47→22:26)
[2019-04-14 07:53] LABS: CALCIUM 8.9 mg/dL (8.8-10.2); POTASSIUM 4.1 mmol/L (3.5-5.1)
[2019-04-14] MEDS: ASPIRIN PO SCH (09:34)
[2019-04-14] MEDS: BETAPACE PO SCH ×2 (09:34→22:09)
[2019-04-14] MEDS: ELIQUIS PO SCH ×2 (09:34→22:09)
[2019-04-14] MEDS: LEVAQUIN 750 MG/D5W 750 MG/150 ML IVPB IV SCH (09:35)
[2019-04-14] MEDS: NORVASC PO SCH (09:35)
[2019-04-14] MEDS: NEURONTIN PO SCH ×3 (09:40→17:21)
--- NOTE | 2019-04-14 10:25 | Diag Imaging Result Doc PS360 ---
EXAM: CHEST-2 VIEWS 04/14/2019 HISTORY: hypoxia TECHNIQUE: PA and lateral chest COMMENT: Compared to 04/12/2019 the alveolar opacity in the left lower lobe has improved slightly. There is slightly worsened opacity in the right base however. IMPRESSION: Improved left lower lobe pneumonia. Slightly worsened pneumonia or atelectasis right lower lobe. Electronically signed by Desmond Reina 04/14/2019 10:23 AM
[2019-04-14] MEDS: ALPHAGAN P 0.15% OPHTH SOLN BOTH EYES SCH (10:41)
[2019-04-14] MEDS: PREDNISONE PO SCH (11:09)
[2019-04-14] MEDS: EFFEXOR XR PO SCH (12:48)
--- NOTE | 2019-04-14 13:55 | PROGRESS NOTE ---
DATE: 04/14/2019 SUBJECTIVE: This patient seems to be feeling better today. X-ray showed an improved left lower lobe pneumonia but the slightly worsened pneumonia or atelectasis in the right lower lobe. She is wheezing a little bit today and she has a history of COPD so I will start this patient on p.o. steroids. She is breathing better. We have been weaning this patient off oxygen. Continue with antibiotics. OBJECTIVE: Vital Signs: Temperature 98.3 degrees, pulse 84, respiratory rate 16, blood pressure 145/70, oxygen saturation 98 on 1 L of nasal cannula. HEENT: Head normocephalic. No trauma. PERRLA. Neck: Supple. No JVD. No masses. Central trachea. Chest: Decreased breath sounds globally with prolonged expiratory phase and some end-expiratory wheezing, mostly at the upper part of the lungs. Bilateral rhonchi, mostly in the right base. Abdomen: Soft, nontender, nondistended. No hepatosplenomegaly. Extremities: No edema, no clubbing, no cyanosis. Neurological Examination: The patient is awake. She is alert. She is oriented x3. No focal deficits. Laboratory: WBCs 14.1, hemoglobin 11.9, hematocrit 37.3, platelets 371,000. Sodium 140, potassium 4.1, chloride 102, bicarbonate 27, BUN 16, creatinine 1, glucose 130, calcium 8.9. ASSESSMENT AND PLAN: 1. Bilateral lower lobe pneumonia. Continue with antibiotics. The left side looks much better. We have some worsening of the pneumonia on the right side versus atelectasis. Continue with levofloxacin. She is feeling much better. She is allergic to penicillins and sulfa. We will try to wean this patient off oxygen. She is not on home oxygen. We will monitor. I will add the incentive spirometer today. 2. History of syncopal episode on previous admission. Aware. 3. Chronic atrial fibrillation. Continue home medications including anticoagulation. 4. History of coronary artery disease, stable. No chest pain at this moment. When she was admitted, she was complaining of some left lower side thoracic pain. 5. Hyperlipidemia. Continue with the same management. 6. Hypothyroidism. Continue levothyroxine. 7. Hypertension. Continue home medication. 8. Dehydration, resolved. Kidney function at baseline. 9. Hyponatremia with hypochloremia, resolved. 10. Overall, this patient is doing much better compared with admission. She is still on a little bit of oxygen but I believe we can stop that today. X-ray looks a little bit worse on the right side but is much better on the left side. Continue with the same management. I will add a little bit of prednisone since she is wheezing. Hopefully, this patient can be discharged in the next 24 hours. cc: Vernon Hansen MD
[2019-04-15] MEDS: SYNTHROID PO SCH (06:05)
[2019-04-15 07:45] LABS: BASO# 0.24 X1000 (0.0-0.2); EOS# 0.09 X1000 (0.0-0.7); EOS% 0.8 % (0.0-10.0); HEMATOCRIT 37.1 % (37.0-47.0); HEMOGLOBIN 11.8 g/dL (12.0-16.0); IMM GRAN# 0.53 X1000 (0.0-0.04); IMM GRAN% 4.5 % (0.0-0.5); LYMPH# 2.31 X1000 (1.2-3.4); LYMPH% 19.6 % (20.5-51.1); MCH 29.9 PG (27-31); MCHC 31.8 g/dL (33-37); MCV 94.2 FL (81-99); MONO% 14.4 % (1.7-9.3); NEUT# 6.93 X1000 (1.4-6.5); NEUT% 58.7 % (42.2-75.2); PLT 393 X1000 (130-400); RBC 3.94 XMIL (4.2-5.4); RDW 12.8 % (11.5-14.5)
[2019-04-15 08:10] LABS: AGAP 10; BUN 13 mg/dL (8-22); CHLORIDE 101 mmol/L (98-107); COSMO 279; CREATININE 0.8 mg/dL (0.5-0.9); ESTIMATED GFR > 60; GLUCOSE 117 mg/dL (70-104); POTASSIUM 3.7 mmol/L (3.5-5.1); SODIUM 139 mmol/L (136-145); TCO2 28 mmol/L (25-35)
[2019-04-15] MEDS: ALPHAGAN P 0.15% OPHTH SOLN BOTH EYES SCH (08:50)
[2019-04-15] MEDS: BETAPACE PO SCH (08:51)
[2019-04-15] MEDS: ASPIRIN PO SCH (08:51)
[2019-04-15] MEDS: PREDNISONE PO SCH (08:52)
[2019-04-15] MEDS: ELIQUIS PO SCH (08:52)
[2019-04-15] MEDS: EFFEXOR XR PO SCH (08:52)
[2019-04-15] MEDS: NORVASC PO SCH (08:52)
[2019-04-15] MEDS: NEURONTIN PO SCH ×2 (08:52→13:54)
[2019-04-15] MEDS: LEVAQUIN 750 MG/D5W 750 MG/150 ML IVPB IV SCH (08:54)
[2019-04-15 09:01] LABS: BANDS 4 % (0-1); LYMPHS 20 % (21-51); MONO 10 % (1-9); SEGS 62 % (42-75)
[2019-04-15 13:55] VITALS: BP 145/72
--- NOTE | 2019-04-16 22:42 | DISCHARGE SUMMARY ---
ADMISSION DATE: 04/12/2019 DISCHARGE DATE: 04/15/2019 DISCHARGE DIAGNOSIS: 1. Left lower lobe pneumonia under treatment. 2. History syncopal episode. 3. Chronic atrial fibrillation. 4. Coronary artery disease. 5. Hyperlipidemia. 6. Hypothyroidism. 7. Hypertension . 8. Dehydration. CONSULTATIONS: None. PROCEDURES: X-ray done on admission showed left lower lobe pneumonia. HOSPITAL COURSE: This is a 83-year-old female with past medical history of chronic atrial fibrillation, hypothyroidism, hyperlipidemia who presented to emergency department complaining of shortness of breath the last 2-4 days, chills and subjective fever, ER evaluation disclosed that she had left lower lobe pneumonia. She was started on broad-spectrum antibiotics and clinical she start feeling better not requiring any oxygen supplementation, not spiking any fever and white cell count was completely normal so she was discharged in stable condition. DISCHARGE PHYSICAL EXAMINATION: Vitals: Temperature 97.9 degrees, heart rate 73, respiratory 18, blood pressure 145/72, O2 saturation 95% on room air . General: This is an 83-year-old female lying in bed in no acute distress. Cardiovascular: S1, S2 heard, no murmurs, gallops or rubs. Regular rate and rhythm. Respiratory: Clear bilaterally to auscultation. No work of breathing or using accessory muscles. Abdomen: Soft, nontender to palpation. Bowel sounds present. No organomegaly. Extremities: No clubbing, cyanosis, or edema. Peripheral pulses present in both legs. Neurological: The patient alert, oriented x3, moves 4 extremities. DISCHARGE DISPOSITION: Home to self-care. FOLLOWUP: With his primary care physician in a week. MEDICATIONS: 1. Levofloxacin 500 mg 1 tablet p.o. daily for 10 days. 2. Levothyroxine 100 mcg 1 tablet p.o. daily. 3. Carbidopa levodopa 10/100 one tab p.o. at bedtime. 4. Gabapentin 300 mg 1 tablet p.o. 3 times per day. 5. Alphagan 1 drop daily. 6. Aspirin 81 mg 1 tablet p.o. daily. 7. ProAir 1 puff by inhalation as needed for shortness of breath. 8. Potassium chloride 10 mEq 1 tablet p.o. daily. 9. Eliquis 5 mg 1 tablet p.o. b.i.d. 10. Sotalol 40 mg 1 tablet p.o. b.i.d. 11. Meclizine 25 mg 1 tablet p.o. daily as needed for motion sickness. 12. Lasix 40 mg 1 tablet p.o. daily. 13. Venlafaxine 75 mg 1 tablet p.o. daily. TIME SPENT: 33 minutes. cc: Tino Robbins MD MTDD
== END 2019-04-15 15:50 | disposition home or self-care (01) | DRG 194 ==
LOC: ED 11:59 → EDIPHOLD 16:40 → SUATTDRO 16:40 → 3N 18:49
PROVIDERS: ATTEND Internal Medicine

== ENCOUNTER 2019-05-11 17:17 | Inpatient (IN) ==
[2019-05-11] MEDS ORDERED: ASPIRIN PO ONE (17:22)
[2019-05-11] MEDS ORDERED: NS 500 ML IV ONE ×2 (17:43→18:41)
[2019-05-11 18:25] LABS: INR 1.11; PROTIME 14.4 Seconds (11.0-16.0)
--- NOTE | 2019-05-11 18:25 | Diag Imaging Result Doc PS360 ---
EXAM: CHEST-2 VIEWS - 05/11/2019 HISTORY: palpitations TECHNIQUE: Chest two views COMPARISON: 03/21/2019 FINDINGS: Heart size appears within normal limits. There are sternal wires from previous surgery again seen. There is been interval decrease in basilar infiltrates. There is a small amount residual infiltrate, atelectasis, or scarring at the left base. Lungs otherwise appear clear. There is no pleural effusion or pneumothorax identified. IMPRESSION: Decrease in basilar infiltrates. Small amount of residual infiltrate, atelectasis, or scarring at left base. No other evidence of acute disease. Electronically signed by Ray Cotton 05/11/2019 6:23 PM
[2019-05-11 18:33] LABS: BASO# 0.01 X1000 (0.0-0.2); BASO% 0.1 % (0.0-0.8); EOS# 0.01 X1000 (0.0-0.7); EOS% 0.1 % (0.0-10.0); IMM GRAN# 0.02 X1000 (0.0-0.04); IMM GRAN% 0.3 % (0.0-0.5); LYMPH# 2.68 X1000 (1.2-3.4); LYMPH% 35.4 % (20.5-51.1); MCH 29.9 PG (27-31); MCHC 31.8 g/dL (33-37); MCV 93.8 FL (81-99); MONO# 0.89 X1000 (0.11-0.59); MONO% 11.7 % (1.7-9.3); MPV 10.3 FL (7.4-10.4); NEUT# 3.97 X1000 (1.4-6.5); NEUT% 52.4 % (42.2-75.2); PLT 223 X1000 (130-400); RBC 4.69 XMIL (4.2-5.4); RDW 13.6 % (11.5-14.5); WBC 7.58 X1000 (4.8-10.8)
[2019-05-11 18:34] LABS: PTT 34.2 Seconds (22.3-41.8)
--- NOTE | 2019-05-11 18:37 | PROVIDER DOCUMENTATION ---
This chart was entered by Milad Ashley Scribe, acting as scribe for Jasmin Carrero MD. HPI-Cardiac General - General Chief Complaint: Palpitations Stated Complaint: AFIB Time Seen by Provider: 05/11/19 17:23 Source: patient, family Allergies/Adverse Reactions: Patient Allergies Allergy/AdvReac Type Severity Reaction Status Date / Time morphine AdvReac HIVES Verified 05/11/19 17:52 Penicillins AdvReac NAUSEA Verified 05/11/19 17:52 Sulfa (Sulfonamide AdvReac NAUSEA Verified 05/11/19 17:52 Antibiotics) Home Medications: Home Medication List Medication Instructions Recorded Confirmed Last Taken Type Brimonidine Tartrate [Alphagan P] 1 drop OP DAILY 05/11/17 05/11/19 04/12/19 08:00 History Carbidopa/Levodopa [Carbidopa-Levo 1 tab PO HS PRN 05/11/17 05/11/19 04/10/19 History 10-100 Tab] Gabapentin 300 mg PO TID 05/11/17 05/11/19 04/11/19 20:00 History Levothyroxine [Synthroid] 100 mcg PO DAILY 05/11/17 05/11/19 04/12/19 08:00 History Aspirin 81 mg PO DAILY #90 chewtab 05/15/17 05/11/19 04/12/19 08:00 Rx Albuterol Sulfate [Proair Hfa] 1 puff INH PRN PRN 05/16/18 05/11/19 04/12/19 02:30 History Amlodipine [Norvasc] 5 mg PO DAILY 05/16/18 05/11/19 04/12/19 08:00 History Apixaban [Eliquis] 5 mg PO BID 12/27/18 05/11/19 04/12/19 08:00 History Sotalol [Betapace] 40 mg PO BID #60 tab 01/08/19 05/11/19 04/11/19 08:00 Rx Meclizine [Antivert] 25 mg PO DAILY PRN PRN tab 01/09/19 05/11/19 Unknown Rx Furosemide [Lasix] 40 mg PO QAM 04/12/19 05/11/19 04/09/19 History Venlafaxine E.r. [Effexor Xr] 75 mg PO DAILY 04/14/19 05/11/19 04/12/19 History Diltiazem L.a. [Cardizem LA] 180 mg PO DAILY 30 Days #30 tab 05/16/19 Unknown Rx - History of Present Illness-Cardiac Nature of Presenting Problem: 83 yof presents to the ed w/ c/o Int. CP that rads across shoulders and cold sweats. pt states onset last night. pt states D started last night from . daughter states calling pt after oriental [employer] and D had started again, last D spell was after lunch. pt has hx of A-Fib. Location: reports: other ("around heart hurting" and rads across shoulders pt states) Quality of Pain: reports: aching Severity in ED: mild Onset/Duration: 24 hours ago Timing: intermittent Context/Activities at Onset: reports: none Modifying Factors: improves with: nothing Palpitation Quality: N/A ("hurting around my heart") History of arrythmia: reports: A-Fib Nitro Today/Relief: reports: no nitro taken today Aspirin Treatment Today: reports: no aspirin today Associated Symptoms: denies: abdominal pain, fever/chills, nausea, shortness of breath, vomiting Similar Symptoms Previously?: Yes (admitted for s/sx) Recently Seen Here or By Another Healthcare Provider: No Review of Systems - Adult - REVIEW OF SYSTEMS - ADULT Constitutional: reports: see HPI, other (cold sweats). denies: chills, fever Eyes: reports: no symptoms reported Ears, Nose, Mouth & Throat: reports: no symptoms reported Cardiovascular: reports: see HPI, chest pain. denies: heart murmur, palpitations Respiratory: denies: shortness of breath, wheezing Gastrointestinal: reports: see HPI, diarrhea. denies: abdominal pain, constipation, nausea, vomiting Genitourinary: reports: no symptoms reported Musculoskeletal: reports: no symptoms reported Integumentary: reports: no symptoms reported Neurological: reports: no symptoms reported Psychiatric: reports: no symptoms reported Endocrine: reports: no symptoms reported Hematologic/Lymphatic: reports: no symptoms reported Allergic/Immunologic: reports: no symptoms reported All Other Systems: Reviewed and Negative Past History - Adult - PAST MEDICAL HISTORY-ADULT Review of Records: reports: Old Records Reviewed, Nursing Assessment Review, Medications Reviewed, Social history reviewed & non-contributory. Major Childhood Illnesses: reports: denies history Cardiovascular: reports: CAD, HTN Respiratory: reports: COPD Gastrointestinal: reports: GERD Obstetrical/Gynecological: reports: denies history Genitourinary: reports: denies history Musculoskeletal: reports: denies history Neurological: reports: denies history Psychiatric: reports: denies history Endocrine/Immune: reports: denies history Other Conditions: reports: denies history - PRIOR SURGERIES/PROCEDURES Surgical/Procedure History: reports: CABG, cardiac stent - IMMUNIZATION STATUS Childhood Immunizations: See Nurse Assessment Flu Vaccine: See Nurse Assessment - FAMILY HISTORY Family History: reviewed, not pertinent - SOCIAL HISTORY Smoking: quit greater than 1 year Substance Use: denies Physical Exam-General - PHYSICAL EXAM-ADULT Initial Vital Signs Reviewed: Yes - CONSTITUTIONAL General Appearance: appears well, alert, no apparent distress - RESPIRATORY Respiratory: lungs clear, normal breath sounds, no pleuratic chest pain, no respiratory distress - CARDIOVASCULAR Cardiovascular: tachycardia (103), irregularly irregular - CHEST (BREASTS) Chest/Breast: deferred - HEART Score HEART Score: Age: > or = 65 Years Progress - PLAN OF CARE/RESULTS Progress/Plan/Lab Results: Orders Category Date Time Status Admit [facility] Routine AdmDCTranf 05/11/19 21:44 Active Activity - Up with Assistance ORDERED Care 05/11/19 21:44 Completed Cardiac Monitoring DIRECTED Care 05/11/19 17:23 Completed ED: Orthostatic Vital Signs (E DIRECTED Care 05/11/19 19:38 Completed Intake and Output-Strict ORDERED Care 05/11/19 21:44 Completed Nursing- MD Consult Request ROUTINE Care 05/11/19 21:44 Completed Oxygen Therapy- ED Nursing DIRECTED Care 05/11/19 17:23 Completed Saline Loc NOW Care 05/11/19 17:23 Completed Vital Signs Order Q 8-HR ASSESS Care 05/11/19 21:44 Completed Z-Document. for Tele Applied ORDERED Care 05/11/19 21:44 Completed Physician/Provider Consults Routine Cons 05/11/19 21:44 Ordered Heart Healthy Diet Diet 05/11/19 21:44 Completed CHEST-2 VIEWS [RAD] Stat Exams 05/11/19 17:23 Completed BASIC METABOLIC PANEL [CHEM] Routine Lab 05/12/19 07:11 Completed CBC WITH DIFF [HEME] Routine Lab 05/12/19 07:11 Completed CBC WITH ELECTRONIC DIFF [HEME] Stat Lab 05/11/19 18:04 Completed CK PROFILE [SP CHEM] Stat Lab 05/11/19 18:04 Completed COMPREHENSIVE METABOLIC PANEL [CHEM] Stat Lab 05/11/19 18:04 Completed MAGNESIUM [CHEM] Routine Lab 05/12/19 07:11 Completed MAGNESIUM [CHEM] Stat Lab 05/11/19 18:04 Completed PRO B-NATRIURETIC PEPTIDE Stat Lab 05/11/19 18:04 Completed PROTIME WITH INR [COAG] Stat Lab 05/11/19 18:04 Completed PTT [COAG] Stat Lab 05/11/19 18:04 Completed TROPONIN T HIGH SENSITIVITY Routine Lab 05/11/19 22:03 Completed TROPONIN T HIGH SENSITIVITY Stat Lab 05/11/19 18:04 Completed TROPONIN T HIGH SENSITIVITY Stat Lab 05/11/19 20:14 Completed TSH Routine Lab 05/12/19 07:11 Completed WBC STOOL [STOOL] Stat Lab 05/11/19 10:22 Completed 0.9% Sodium Chloride Inj [Ns] 1,000 ml Med 05/11/19 21:44 Discontinued Potassium Chloride 10 meq IV 75 mls/hr 0.9% Sodium Chloride Inj [Ns] 500 ml Med 05/11/19 18:41 Discontinued IV 999 mls/hr Acetaminophen [Tylenol] Med 05/11/19 21:44 Discontinued 650 mg PO Q6H PRN PRN Apixaban [Eliquis] Med 05/11/19 21:44 Discontinued 5 mg PO BID Aspirin Med 05/11/19 17:22 Discontinued 325 mg PO NOW ONE Aspirin Med 05/12/19 09:00 Discontinued 81 mg PO DAILY Brimonidine 0.15% Ophth Soln [Alphagan P 0.15% Ophth Med 05/12/19 09:00 Discontinued Soln] 0 ml BOTH EYES DAILY Carbidopa/Levodopa [Sinemet 10/100] Med 05/11/19 21:44 Discontinued 1 each PO HS PRN PRN Diltiazem L.a. [Cardizem LA] Med 05/12/19 09:00 Discontinued 120 mg PO DAILY Diltiazem [Cardizem] Med 05/11/19 21:44 Discontinued 30 mg PO NOW ONE Furosemide [Lasix] Med 05/11/19 19:06 Discontinued 20 mg IV NOW ONE Furosemide [Lasix] Med 05/12/19 09:00 Discontinued 40 mg PO QAM Gabapentin [Neurontin] Med 05/12/19 09:00 Discontinued 300 mg PO TID Levothyroxine [Synthroid] Med 05/12/19 07:00 Discontinued 100 microgm PO DAILY@0700 Meclizine [Antivert] Med 05/11/19 21:44 Discontinued 25 mg PO DAILY PRN PRN Ondansetron [Zofran] Med 05/11/19 21:44 Discontinued 4 mg IV Q4H PRN PRN Sotalol [Betapace] Med 05/11/19 21:44 Discontinued 40 mg PO BID Venlafaxine E.r. [Effexor Xr] Med 05/12/19 09:00 Discontinued 75 mg PO DAILY Telemetry [OM.EQ] Routine Oth 05/11/19 21:44 Active EKG [EKG] Stat Ther 05/11/19 17:23 Draft Echo Spec/Color Doppler Routine Ther 05/11/19 21:44 Completed Transfer/Admit Order [TRANSFER] Routine Transfer 05/11/19 20:40 Completed Result Diagrams: 05/12/19 07:11 05/16/19 08:28 - REASSESSMENT Reassessment #1 Status: other (pt follows with Dr. Middleton for cardiology.) - EKG 1 Time of EKG reading by physician:: 17:36 EKG Read and Signed by:: Jasmin Carrero EKG Interpretation (*Must complete 3 of following elements*): Abnormal Rate: 106 Rhythm: Afib QRS: normal Prior EKG Comparison: changes noted (04/17/19 showed NSR.) - XRAY 1 XRAY Study: Chest Impression: See EMR Report (EXAM: CHEST-2 VIEWS - 05/11/2019 HISTORY: pal pitations TECHNIQUE: Chest two views COMPARISON: 03/21/2019 FINDINGS: Heart size appears within normal limits. There are sternal wires from previous surgery again seen. There is been interval decrease in basilar infiltrates. There is a small amount residual infiltrate, atelectasis, or scarring at the left base. Lungs otherwise appear clear. There is no pleural effusion or pneumothorax identified. IMPRESSION: Decrease in basilar infiltrates. Small amount of residual infiltrate, atelectasis, or scarring at left base. No other evidence of acute disease. Electronically signed by Ray Cotton 05/11/2019 6:23 PM) - CONSULTS/PCP/HOSPITALIST Notification #1 *Consult/PCP/Hospitalist*: Dr. Yusuf Time Discussed: 20:10 Consult Disposition: Will see in ED Departure - Departure Date of Disposition Decision: 05/11/19 Time of Disposition Decision: 19:00 DIAGNOSIS: CHF exacerbation, Chest pain, Atrial fibrillation Disposition: ADMITTED INPATIENT 09 Certified Medical Emergency: Emergent Condition: Stable - Critical Care Note This patient required my direct & personal management of CC.: No Attestation - Physician/ ALICIA Attestation Patient care was provided by Advanced Practice Provider:: No The physician spent face to face time with patient:: Yes Advanced Practice Provider documentation review:: Supervising physician onsite and consulted in the evaluation and care of this patient. The physician did have a face to face encounter with the patient. This chart was documented by the indicated scribe, (Milad Ashley, Scribn[employer]h) and accurately reflects the services I performed and decisions made by me, Jasmin Carrero MD, as attested by the provider's signature.
[2019-05-11 18:47] LABS: ALB/GLOB RATIO 1.2; ALBUMIN 3.6 g/dL (3.5-5.0); CALCIUM 9.2 mg/dL (8.8-10.2); MAGNESIUM 2.1 mg/dL (1.5-2.7); POTASSIUM 4.8 mmol/L (3.5-5.1); TOTAL BILIRUBIN 0.57 mg/dL (0.20-1.00); TOTAL PROTEIN 6.5 g/dL (6.3-8.3)
[2019-05-11] MEDS ORDERED: LASIX IV ONE (19:06)
--- NOTE | 2019-05-11 21:33 | HISTORY AND PHYSICAL ---
REASON FOR ADMISSION: Palpitations and chest pain today. HISTORY OF PRESENT ILLNESS: Ms. Sandra Langley is an 83-year-old woman with past medical history of hypothyroidism, hyperlipidemia, atrial fibrillation, COPD, heart disease, macular degeneration, who comes in today complaining of intermittent palpitations with associated chest pain and lightheadedness. Said these episodes lasts anywhere from 2 to 5 minutes tops. There is no associated breathing difficulty with this. No exertional dyspnea. No cough. No antecedent leg swelling or red or extremity redness or pain. No fever or chills. This has been ongoing for the last 24 hours. No increase in postural lightheadedness, which has occurred on and off for several months. No bleeding from any orifice. No change in her medications. No contacts with anybody with GI complaints, because the patient is not complaining of loose stools for the last 24 hours, which have been nonbloody. No abdominal symptoms. No additional GI or complaints other than occasional nausea. She was treated 3 weeks ago I believe for pneumonia, was put on antibiotics for this. REVIEW OF SYSTEMS: Twelve system review was done. Positive findings as per HPI. ALLERGIES: To penicillin, sulfa, morphine. SOCIAL HISTORY: Does not smoke, drink, use drugs. Lives with her granddaughter and son. FAMILY HISTORY: Notable for heart disease and diabetes in first-degree relatives. SURGICAL HISTORY: She has had bypass surgery, stent surgery, cataract surgery, right knee surgery. LAB WORK: Chest film shows no acute infiltrate or pulmonary edema. White count 7000, hemoglobin and hematocrit 14 and 44, platelets 223,000 with normal differential. BUN 13, creatinine 1.0, glucose 128, alkaline phosphatase 110. Troponin 22. ProBNP 5700. PTT is normal. EKG still pending. Has not been done yet. PHYSICAL EXAMINATION: GENERAL: Pleasant elderly white female, not in acute distress. VITAL SIGNS: Her blood pressure initially was 98/67, but since she has gotten a L of fluid it is now 170/90, heart rate was 95, now it is in the 80s, respiratory rate 18, temperature is 98.4 degrees. She is 98% O2 on 3 L. HEENT: Head is normocephalic, atraumatic. Eyes, KINZA, EOMI. She is anicteric not pale. ENT exam is grossly normal. No central cyanosis. NECK: Is supple. No JVD or carotid bruit. No thyromegaly. CHEST: Clear when auscultated. The patient has bibasilar crepitations. Decreased entry in the bases. CARDIOVASCULAR: 1st and 2nd heart sounds heard. No gallops, murmurs, rubs. Rhythm is irregular. ABDOMEN: Full, soft, nontender. No organomegaly. Bowel sounds are normal. RECTAL: Deferred at this time. EXTREMITIES: No edema, clubbing or peripheral cyanosis. CENTRAL NERVOUS SYSTEM: No gross focal deficits. SKIN: Is intact, no breakdown, lesion or erythema. MUSCULOSKELETAL: Exam is grossly normal. ASSESSMENT: 1. Atrial fib with rapid ventricular rate. Etiology yet to be determined. 2. Acute diarrheal illness. Could be viral, however, can't rule out Clostridium difficile due to previous antibiotic exposure. 3. Coronary artery disease. 4. Hypertension. 5. Hyperlipidemia. 6. Chronic obstructive pulmonary disease. 7. Macular degeneration. 8. Hypothyroidism. PLAN: The patient will be started on moderate doses of Cardizem to assist with rate control. Alternatively, her food beverage supervisor may elect to increase sotalol and discontinue Cardizem. It is possible theoretically that she was slightly dehydrated from diarrhea, which she says she has had 6 loose stools. And just resuscitation of her overall fluid deficits may alone correct this. Continue with anticoagulation, i.e., Eliquis and antiplatelet therapy for atrial fibrillation and coronary artery disease respectively. We will consult the food beverage supervisor to see her and order echocardiogram, if one has not been done in 6 months. Repeat cardiac enzymes there today to ensure that there is no upward trend, which will suggest the patient has ruled in for acute non-ST segment myocardial infarction. EKG has not yet been done and we will await this. Cautious replacement of fluids will be done to make up for gastrointestinal losses. Follow labs in the a.m. cc: MD Rima Briones MD Peter Johnson, MD MTDD
[2019-05-11] MEDS ORDERED: CARDIZEM PO ONE (21:44)
[2019-05-11] MEDS ORDERED: ZOFRAN IV PRN (21:44)
[2019-05-11] MEDS ORDERED: POTASSIUM CHLORIDE 10 MEQ in NS 1,000 ML IV SCH (21:44)
[2019-05-11] MEDS ORDERED: TYLENOL PO PRN (21:44)
[2019-05-11] MEDS ORDERED: ANTIVERT PO PRN (21:44)
[2019-05-11] MEDS ORDERED: SINEMET 10/100 PO PRN (21:44)
[2019-05-11 22:39] LABS: URINE SOURCE CLEAN CATCH
[2019-05-11 22:41] LABS: BILIRUBIN URINE NEGATIVE (NEGATIVE); BLOOD URINE SMALL (NEGATIVE); COLOR YELLOW; GLUCOSE URINE NEGATIVE (NEGATIVE); KETONE URINE NEGATIVE (NEGATIVE); LEUKOCYTES URINE SMALL (NEGATIVE); NITRITE URINE NEGATIVE (NEGATIVE); PROTEIN URINE NEGATIVE (NEGATIVE); SP GRAVITY URINE 1.014; TURBIDITY URINE CLEAR (CLEAR); UR EPITHELIAL CELLS <10 /HPF (<10); URINE BACTERIA NEGATIVE /HPF; URINE RBC <10 /HPF (<10); UROBILINOGEN URINE NORMAL (NORMAL)
[2019-05-11] MEDS: BETAPACE PO SCH (22:43)
[2019-05-11] MEDS: ELIQUIS PO SCH (22:43)
[2019-05-12] MEDS: SYNTHROID PO SCH (06:21)
[2019-05-12 07:46] LABS: BASO# 0.01 X1000 (0.0-0.2); BASO% 0.1 % (0.0-0.8); EOS# 0.01 X1000 (0.0-0.7); EOS% 0.1 % (0.0-10.0); HEMATOCRIT 40.5 % (37.0-47.0); HEMOGLOBIN 12.7 g/dL (12.0-16.0); IMM GRAN# 0.02 X1000 (0.0-0.04); IMM GRAN% 0.3 % (0.0-0.5); LYMPH# 2.68 X1000 (1.2-3.4); MCH 29.5 PG (27-31); MCHC 31.4 g/dL (33-37); MONO% 12.4 % (1.7-9.3); MPV 10.3 FL (7.4-10.4); NEUT# 3.63 X1000 (1.4-6.5); NEUT% 50.1 % (42.2-75.2); PLT 196 X1000 (130-400); RBC 4.31 XMIL (4.2-5.4); RDW 13.5 % (11.5-14.5); WBC 7.25 X1000 (4.8-10.8)
--- NOTE | 2019-05-12 07:48 | EKG Report ---
Test Performed on : 05/11/2019 5:33:04 PM Test Reason : palpitations Blood Pressure : / mmHG Vent. Rate : 106 BPM Atrial Rate : 241 BPM P-R Int : 000 ms QRS Dur : 086 ms QT Int : 350 ms P-R-T Axes : 000 -29 -28 degrees QTc Int : 464 ms Atrial fibrillation. with rapid ventricular response. Nonspecific ST and T wave abnormality Abnormal ECG When compared with ECG of 17-APR-2019 22:56, (Unconfirmed) Atrial fibrillation. has replaced Sinus rhythm. Unconfirmed Result
[2019-05-12 08:03] LABS: AGAP 9; BUN 10 mg/dL (8-22); CALCIUM 8.6 mg/dL (8.8-10.2); CHLORIDE 106 mmol/L (98-107); COSMO 286; CREATININE 0.8 mg/dL (0.5-0.9); ESTIMATED GFR > 60; GLUCOSE 105 mg/dL (70-104); MAGNESIUM 1.9 mg/dL (1.5-2.7); POTASSIUM 4.3 mmol/L (3.5-5.1); SODIUM 144 mmol/L (136-145); TCO2 29 mmol/L (25-35)
[2019-05-12] MEDS: NEURONTIN PO SCH ×3 (08:53→20:02)
[2019-05-12] MEDS: ELIQUIS PO SCH ×2 (08:53→20:02)
[2019-05-12] MEDS: EFFEXOR XR PO SCH (08:53)
[2019-05-12] MEDS: CARDIZEM LA PO SCH (08:53)
[2019-05-12] MEDS: LASIX PO SCH (08:53)
[2019-05-12] MEDS: BETAPACE PO SCH ×2 (08:53→20:03)
[2019-05-12] MEDS: ASPIRIN PO SCH (08:53)
[2019-05-12] MEDS: ALPHAGAN P 0.15% OPHTH SOLN BOTH EYES SCH (08:54)
[2019-05-12] MEDS ORDERED: NEURONTIN PO SCH (09:00)
--- NOTE | 2019-05-12 11:42 | CARDIOLOGY CONSULTATION ---
DATE: 05/12/2019 CHIEF COMPLAINT: Weakness, fatigue, heart racing. HISTORY OF PRESENT ILLNESS: Ms. Langley is an 83-year-old female with a history of paroxysmal atrial fib, coronary disease, previous bypass grafting. She presented for the above symptoms. These have been going on for the last 2 to 3 days. In addition, she has had significant bouts of diarrhea. She reports no chest pain symptoms. Episodes of palpitations last for a few minutes and cause her to be very fatigued, very short of breath. She reports compliance with all of her medications. PAST MEDICAL HISTORY: 1. Significant for coronary disease with bypass grafting in 2001 that resulted in LADD to the LAD and a vein graft to the RCA. Last cardiac catheterization was in April 2017 that demonstrated normal left main. LAD had a 50% proximal lesion, 100% mid, 40% small first diagonal. Circumflex had 20% prox, 20% distal, 90% small posterior lateral obtuse marginal. The RCA had a 70% mid lesion. FFR of the mid RCA was 0.79 resulting in a drug-eluting stent to the RCA. LADD to the LAD patent. Vein graft to the RCA is known to be occluded. 2. Atrial fib/atrial flutter. Currently maintained on sotalol and Eliquis. 3. Hypertension. 4. Diastolic heart failure. 5. COPD. 6. Hyperlipidemia. 7. Diabetes. 8. Hypothyroidism. SOCIAL HISTORY: Does not smoke. No alcohol. FAMILY HISTORY: Notable for heart disease and hypertension. REVIEW OF SYSTEMS: A 10 system review of systems is negative. PHYSICAL EXAMINATION: Vital Signs: Afebrile. Heart rate 84, blood pressure 141/66. General: She is in no acute distress. HEENT: Oropharynx is moist. Poor dentition. Eye examination shows pink conjunctivae, white sclerae. Neck: Examination shows no obvious thyromegaly or thyroid tenderness. Cardiovascular: She sounds to be in an irregularly irregular rhythm. Telemetry currently shows atrial fibrillation. She has no lower extremity edema. Chest: Clear bilaterally. She has no increased work of breathing. Abdomen: Soft, nontender, nondistended. She has no obvious organomegaly. Skin: Exam is warm and dry throughout without any rashes. Neurological: Moving all extremities well. She has no lateralizing deficits. PERTINENT DATA: Chest x-ray showed decrease in basilar infiltrates compared to previous study in March. She has a small amount of residual infiltrate versus atelectasis in the left base. No other acute disease. Her EKG on presentation shows atrial fibrillation with a rate of 106 beats per minute. White count 7.2, hematocrit 40, platelet count 196. Sodium 144, potassium 4.3, BUN 10, creatinine 0.8. ProBNP was 5702. Initial troponin was 22 and subsequent was 21 and 22. ASSESSMENT: Ms. Langley is an 83-year-old female, who presented in low grade heart failure and rapid atrial fibrillation. PLAN: At this point, we will discuss the case with the EP physicians over in [place]. Consideration for AV node ablation along with H[employer]ENCE [employer]UTOR implantation. 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 She is currently maintained on Eliquis at 5 mg b.i.d. cc: César Middleton MD
--- NOTE | 2019-05-12 12:36 | PROGRESS NOTE ---
DATE: 05/12/2019 SUBJECTIVE: Came in with palpitations. She is in atrial fibrillation. Apparently, she has had this before. An 83-year-old with past medical history of hypothyroidism, hyperlipidemia, atrial fibrillation, COPD, heart disease, macular degeneration, who came in complaining of intermittent palpitations associated with chest pain and lightheadedness. Said these episodes last anywhere from 2 to 5 minutes. There is no associated breathing difficulty. No exertional dyspnea. No cough. Dr. César Middleton has followed her before for chronic recurrent atrial fibrillation with rapid ventricular rate. Apparently, she had a recent acute diarrheal illness, suspect viral gastroenteritis, and she was a little bit dehydrated. She has a history of coronary artery disease, hypertension, obstructive sleep apnea. She says she feels much better this morning, breathing comfortably, remains afebrile. OBJECTIVE: Vital Signs: Temperature 97.5 degrees, pulse 69, respirations 18, blood pressure 106/66. Eyes: Pupils are equal and round. Lungs: Clear in all lung caldwell. Cardiovascular exam: Regular rhythm and rate without murmur or S3. Urine output was 800 mL. I see no pedal edema. CVP is less than 6 cm from the right atrium. ASSESSMENT AND PLAN: Recurrent atrial fibrillation. So I think there is consideration to pursue AV erin ablation and then a pacemaker placement. She has had issues with tachy-meredith syndrome on sotalol and diltiazem, and has relatively frequent bouts of atrial fibrillation resulting in hospitalization. REVIEW OF HER ORDERS: Right now she is on Eliquis 5 mg b.i.d., aspirin 81 mg a day. She gets carbidopa/levodopa 1 at bedtime p.r.n., diltiazem long-acting 120 mg daily, Lasix 40 mg q.a.m., Neurontin 300 mg I think she gets that 3 times a day, sotalol 40 mg p.o. b.i.d., Effexor ER 75 mg a day, aspirin 325 mg a day. REVIEW OF HER LABS: Hematocrit 40. Electrolytes look good. Sodium 144, potassium 4.3, chloride 106. BUN 10, creatinine 0.8, magnesium was 1.9. ProBNP was 5702. cc: Helder Browne MD
--- NOTE | 2019-05-12 14:24 | ECHO REPORT ---
ORDER DATE: 05/11/2019 INTERPRETING PHYSICIAN: Dr. Ady Bullock ECHOCARDIOGRAPHIC MEASUREMENTS: 1. Interventricular septum: 0.9 cm. 2. Posterior wall: 1.0 cm. 3. Diastolic diameter: 5.0 cm. 4. Left atrium: 3.6 cm. 5. Aortic root: 2.9 cm. SUMMARY OF THE 2-DIMENSIONAL IMAGIN. Aortic valve leaflets were sclerosed, trileaflet, opening normally. 2. There is biatrial enlargement. 3. There is moderate mitral annular calcification. 4. Tricuspid valve was normal. 5. Mitral valve was normal. There is mild mitral regurgitation. 6. Peak velocity across the aortic valve less than 2 m/sec. There is no aortic stenosis, there is aortic sclerosis. There is no aortic regurgitation. 7. There is moderate tricuspid regurgitation. Peak velocity across the tricuspid valve was 2.8 m/sec. 8. Pulmonary artery systolic pressure of 41 mmHg. Normal left ventricular cavity size. 9. Mild concentric left ventricular hypertrophy. Estimated ejection fraction of 60%. 10. Atrial fibrillation was noted. 11. There is no pericardial effusion or obvious intracardiac mass or thrombus seen. cc: MD Niurka Telles MD
[2019-05-13] MEDS: SYNTHROID PO SCH (06:04)
[2019-05-13] MEDS: NEURONTIN PO SCH ×3 (09:14→20:54)
[2019-05-13] MEDS: CARDIZEM LA PO SCH (09:14)
[2019-05-13] MEDS: ASPIRIN PO SCH (09:14)
[2019-05-13] MEDS: ELIQUIS PO SCH ×2 (09:15→20:54)
[2019-05-13] MEDS: LASIX PO SCH (09:15)
[2019-05-13] MEDS: ALPHAGAN P 0.15% OPHTH SOLN BOTH EYES SCH (09:15)
[2019-05-13] MEDS: EFFEXOR XR PO SCH (09:15)
--- NOTE | 2019-05-13 09:16 | EKG Report ---
Test Performed on : 05/13/2019 09:02:51 AM Test Reason : afib Blood Pressure : / mmHG Vent. Rate : 087 BPM Atrial Rate : 271 BPM P-R Int : 000 ms QRS Dur : 090 ms QT Int : 400 ms P-R-T Axes : 000 -30 007 degrees QTc Int : 481 ms Atrial flutter. with variable AV block. Left axis deviation Abnormal ECG When compared with ECG of 11-MAY-2019 17:33, (Unconfirmed) Atrial flutter. has replaced Atrial fibrillation. Confirmed by Magno King MD ([id number]) on 05/13/2019 4:20:21 PM
--- NOTE | 2019-05-13 13:08 | DISCHARGE SUMMARY ---
ADMISSION DATE: 05/11/2019 DISCHARGE DATE: 05/13/2019 HISTORY AND HOSPITAL COURSE: An 83-year-old who presented on 05/11/2019, discharged on 05/13/2019. Her doctor is Dr. Parkinson. She presented with palpitations and some chest pain. Ms. Langley is an 83-year-old woman with past medical history of hypothyroidism, hyperlipidemia, atrial fibrillation, COPD, heart disease, and macular degeneration, who came in on 05/11/2019 complaining of intermittent palpitations associated with chest pain and lightheadedness. Daughters report that she had had a little viral gastroenteritis, and so she appeared to be a little bit dry and had not been eating or drinking much, so admitted to the hospital with atrial fibrillation with rapid ventricular rate. We gave her some fluids. She had a recent acute diarrheal illness. It sounds like it was a viral gastroenteritis. She has underlying coronary artery disease, hypertension, hyperlipidemia, chronic obstructive pulmonary disease, macular degeneration, hypothyroidism. She sees Dr. 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 She had issues with tachy-meredith syndrome on sotalol and diltiazem, and continues to have frequent bouts of atrial fibrillation resulting in hospitalizations. She is maintained on Eliquis 5 mg b.i.d. She felt good and wanted to go home. Follow up with Dr. Middleton, and they are going to pursue AV ablation and pacemaker placement. DISCHARGE MEDICATIONS: Will discharge her home on Norvasc 5 mg a day, Eliquis 5 mg b.i.d. aspirin 81 mg a day, carbidopa/levodopa 10/100 one at bedtime p.r.n., Lasix 40 mg every a.m., gabapentin 300 mg p.o. t.i.d., Synthroid 100 mcg daily, Antivert 25 mg daily p.r.n., sotalol 40 mg p.o. b.i.d., and Effexor XR 75 mg daily. She also takes albuterol or ProAir 1 puff as needed. cc: Helder Browne MD
[2019-05-13] MEDS: LASIX IV SCH (16:51)
--- NOTE | 2019-05-13 18:22 | CARDIOLOGY PROGRESS NOTE ---
DATE: 05/13/2019 SUBJECTIVE: Ms. Langley continues to feel somewhat weak. She has not had any heart racing in the interim. PHYSICAL EXAMINATION: vital signs: She is afebrile. Heart rate of 68, blood pressure 130/59. She did have a documented heart rate of 43, that on review of the telemetry strips did not seem to demonstrate any significant bradycardic spells. General: She is in no acute distress. Cardiovascular: She is in an irregularly irregular rhythm. She has no murmurs. She has no S3. She has no lower extremity edema. Chest: Sounds clear bilaterally. She has no increased work of breathing. Abdomen: Soft, nontender. She has no obvious organomegaly. PERTINENT DATA: Her BUN and creatinine are 10 and 0.8, with a magnesium level of 1.9. ASSESSMENT: Ms. Langley is an 83-year-old female with paroxysmal atrial fibrillation. PLAN: Discussion with the EP service suggests that we should pursue a rate control method only. They do not believe she is appropriate at this current time for an AV node ablation and a permanent pacemaker placement. I will try to diurese her overnight by giving her 60 of IV Lasix now and 60 in the morning. We will recheck laboratories in the morning. It may be reasonable to consider discharge tomorrow. cc: César Middleton MD
[2019-05-13] MEDS ORDERED: LASIX PO SCH (21:00)
[2019-05-14] MEDS: SYNTHROID PO SCH (06:24)
[2019-05-14 08:49] LABS: CALCIUM 8.9 mg/dL (8.8-10.2); CREATININE 1.2 mg/dL (0.5-0.9); MAGNESIUM 2.1 mg/dL (1.5-2.7); POTASSIUM 4.4 mmol/L (3.5-5.1)
--- NOTE | 2019-05-14 09:18 | CARDIOLOGY PROGRESS NOTE ---
DATE: 05/14/2019 SUBJECTIVE: Ms. Langley reported she had a little bit of a hot sweaty spell last night. She had no heart racing. Her breathing is doing okay. She has a significant increase in urine output yesterday. PHYSICAL EXAMINATION: Vital signs: Afebrile. Heart rate is in the 80s to 90s predominantly. The heart rate yesterday documented at 43 was not confirmed by telemetry. This was after I discussed this with them yesterday afternoon. She did have a heart rate of 117 this morning. Blood pressure 104/82. Limited intake and output data secondary to 2 voids not measured. General: She is in no acute distress. Cardiovascular: She sounds to be in a irregularly irregular rhythm consistent with atrial fibrillation. She has no lower extremity edema. Chest: Clear bilaterally. PERTINENT DATA: I have no new lab data from today. ASSESSMENT: Ms. Langley is an 83-year-old female with atrial fibrillation. PLAN: We will proceed with rate control. We have her on Lasix 60 mg IV daily. She will get another dose today. I have increased her diltiazem to 180 mg daily. At this point, she could likely be discharged later this afternoon. I would like to see her laboratories from this morning prior to doing this though. cc: César Middleton MD
[2019-05-14] MEDS: EFFEXOR XR PO SCH (09:56)
[2019-05-14] MEDS: NEURONTIN PO SCH ×3 (09:57→21:17)
[2019-05-14] MEDS: ELIQUIS PO SCH ×2 (09:57→21:17)
[2019-05-14] MEDS: CARDIZEM LA PO SCH (09:57)
[2019-05-14] MEDS: ASPIRIN PO SCH (09:57)
[2019-05-14] MEDS: LASIX IV SCH (09:58)
[2019-05-14] MEDS: ALPHAGAN P 0.15% OPHTH SOLN BOTH EYES SCH (09:58)
[2019-05-15] MEDS: SYNTHROID PO SCH (06:14)
[2019-05-15] MEDS: EFFEXOR XR PO SCH (09:07)
[2019-05-15] MEDS: ELIQUIS PO SCH ×2 (09:07→20:52)
[2019-05-15] MEDS: ASPIRIN PO SCH (09:07)
[2019-05-15] MEDS: NEURONTIN PO SCH ×3 (09:07→20:53)
--- NOTE | 2019-05-15 09:10 | CARDIOLOGY PROGRESS NOTE ---
DATE: 05/15/2019 SUBJECTIVE: Ms. Langley had an episode of a fall yesterday. This occurred when she was up and trying to ambulate around the room yesterday. She got somewhat lightheaded when that occurred. PHYSICAL EXAMINATION: She is afebrile, heart rate 92, blood pressure is 130/71. Her Is and Os thus far are -1.9 L with 2 voids not measured. General: She is in no acute distress. Cardiovascular: Irregularly irregular rhythm. She has no murmurs. She has no S3. No lower extremity edema. Chest Examination: Clear bilaterally. No increased work of breathing. PERTINENT DATA: Her sodium is 142, potassium is 4.4, BUN 19, creatinine is 1.2. Her proBNP was 1279 which is down from 5702. ASSESSMENT: Ms. Langley is an 83-year-old female with atrial fibrillation. PLAN: We will attempt to rate control the patient only. I will increase her diuretics at home to 40 mg p.o. b.i.d. We will stop her IV Lasix this morning, place her on 40 mg p.o. b.i.d. and if she is stable from an ambulatory standpoint, she can likely be discharged home. Likely etiology of the fall was mild orthostasis along with likely prolonged bedrest. cc: César Middleton MD
[2019-05-15] MEDS: LASIX PO SCH ×2 (09:11→20:53)
[2019-05-15] MEDS: CARDIZEM LA PO SCH (09:11)
[2019-05-15] MEDS: ALPHAGAN P 0.15% OPHTH SOLN BOTH EYES SCH (09:12)
--- NOTE | 2019-05-15 17:15 | PROGRESS NOTE ---
DATE: 05/15/2019 SUBJECTIVE: Ms. Langley was doing well. They were hoping to go home, but she has had blood pressures that have dipped down into the 80s when she stands up and she was dizzy and so we are checking orthostatics. OBJECTIVE: Vital Signs: She has remained afebrile, temperature is 98.3 degrees, pulse 79, respirations 18, blood pressure 93/57. HEENT: Pupils are equal and round. Lungs: Clear in all lung caldwell. Cardiovascular: Regular rhythm and rate without murmur or S3. Abdomen: Soft, skin is warm and dry. ASSESSMENT AND PLAN: 1. We will attempt rate control only. Increased her diuretics at home to 40 mg p.o. b.i.d., stop her IV Lasix, placed her on 40 mg p.o. b.i.d. I would like to see her blood pressure come up a little bit. I think she is at high risk to fall right now. I think we are going to pursue AV ablation with pacemaker. 2. Currently, she is taking Eliquis 5 mg twice a day, aspirin 81 mg a day, carbidopa-levodopa at bedtime p.r.n. Cardizem long-acting 180 mg daily, Lasix 40 mg p.o. b.i.d., gabapentin 300 mg 3 times a day. The patient is on Synthroid 100 mg p.o. daily, and Effexor ER 75 mg a day. 3. Her last several blood pressures have been 109/58, 130/71, but today they have been running between 85 and 93/57, so we are going to have her stay tonight and see how we are doing. I wonder if we should decrease her Neurontin down to 100 mg 3 times a day and see if that will help. cc: Helder Browne MD
[2019-05-15] MEDS ORDERED: NS 500 ML IV ONE (19:21)
[2019-05-16] MEDS: SYNTHROID PO SCH (06:34)
[2019-05-16] MEDS: ELIQUIS PO SCH (08:50)
[2019-05-16] MEDS: CARDIZEM LA PO SCH (08:50)
[2019-05-16] MEDS: NEURONTIN PO SCH ×2 (08:50→14:50)
[2019-05-16] MEDS: ASPIRIN PO SCH (08:50)
[2019-05-16] MEDS: ALPHAGAN P 0.15% OPHTH SOLN BOTH EYES SCH (08:50)
[2019-05-16] MEDS: EFFEXOR XR PO SCH (08:50)
[2019-05-16 09:12] LABS: CALCIUM 9.3 mg/dL (8.8-10.2); CREATININE 1.1 mg/dL (0.5-0.9); POTASSIUM 3.6 mmol/L (3.5-5.1)
--- NOTE | 2019-05-16 13:32 | DISCHARGE SUMMARY ---
ADMISSION DATE: 05/11/2019 DISCHARGE DATE: 05/16/2019 HOSPITAL COURSE: She is a patient of Dr. Rima Parkinson. She presented with palpitations and chest pain on 05/11/2019. This is an 83-year-old female with past medical history of hypothyroidism, hyperlipidemia, atrial fibrillation, COPD, heart disease, macular degeneration, who came in complaining of intermittent palpitations associated with chest pain and lightheadedness. Said these episodes last anywhere from 2 to 5 minutes. There was no associated breathing difficulty. No exertional dyspnea. No cough. No antecedent leg swelling or extremity redness or pain. No fever or chills. She had been ongoing for about 24 hours. No increase in postural lightheadedness, which occurred off and on for several months. No bleeding from any orifice. No change in her medication. No contacts with anybody. No GI complaints. She was admitted with atrial fib rapid ventricular rate. She has chronic atrial fib, suspected tachy- meredith syndrome. Dr. Middleton had been following her and they tried her on different medications with difficulty of low blood pressure, and so are pursuing possible AV ablation and pacemaker. She had a repeat echocardiogram 223 and pulmonary artery pressure is 41 mmHg. No significant valvular dysfunction. She was in atrial fibrillation at that time. She does have left ventricular hypertrophy. Ejection fraction estimated at 60%, so she had low-grade heart failure with pulmonary venous hypertension and rapid atrial fibrillation. Dr. Middleton has discussed this with EP physicians in [place] consideration for AV node ablation and pacemaker placement. She is with tachy-meredith syndrome on sotalol and diltiazem, and continues to have relatively frequent bouts of atrial fib resulting in hospitalization. She is still on Eliquis 5 mg twice a day, so medications were adjusted and she was diuresed some and breathing comfortably. I am going to place her on Lasix 40 mg twice a day and discharge her home. She did have some episodes where her blood pressure would dip down in the 80s. We will discharge her home on 05/16/2019. The medications will be: 1. Eliquis 5 mg twice a day. 2. Aspirin 81 mg a day. 3. Sinemet 10/100 one at bedtime p.r.n. restless legs. 4. Cardizem long-acting 180 mg a day. 5. Neurontin 300 mg three times a day. 6. Synthroid 100 mcg daily. 7. Antivert 25 mg a day p.r.n. vertigo. 8. Effexor XR 75 mg a day. Follow up with Dr. Middleton in a couple weeks. cc: Helder Browne MD
[2019-05-16 15:08] VITALS: BP 101/65
--- NOTE | 2019-05-16 18:27 | CARDIOLOGY PROGRESS NOTE ---
DATE: 05/16/2019 SUBJECTIVE: The patient was not orthostatic yesterday. We gave her some fluids. She feels a little bit better today but has not been ambulatory much. OBJECTIVE: Vital Signs: She is afebrile. Heart rate 93. Most recent blood pressure is 122/70. Heart rate 95. Her blood pressures all today are in the 110s to 140s. General: No acute distress. Cardiovascular: She is in an irregularly irregular rhythm. She has no murmurs. No S3. Extremities: She has no lower extremity edema. Chest: Clear bilaterally. No increased work of breathing. PERTINENT DATA: Sodium 144, potassium 3.6, BUN 20, creatinine is 1.1. ASSESSMENT: Ms. Langley is an 83-year-old female who presented with atrial fibrillation. PLAN: We will get her ambulating today as well as check her orthostatics. If she is stable she can likely be discharged home. She can be initiated on Lasix 40 b.i.d. I would probably start that on Sunday. I discussed with her and her daughter about backing off the medication to once a day if she began feeling lightheaded upon standing again. Again, we will have them follow up in the office in 1 month. It would be reasonable for her to be discharged later on today if orthostasis is improved. cc: César Middleton MD
== END 2019-05-16 16:21 | disposition home or self-care (01) | DRG 309 ==
LOC: ED 17:17 → 3N 21:29 → SUATTDRO 21:29
PROVIDERS: ATTEND Emergency Medicine